=== PATIENT | female | born 1990 | race Two or more races ===

== ENCOUNTER 2023-09-12 12:33 | Outpatient (CLI) | payer OTHER ==
--- NOTE | 2023-09-12 17:46 | Ultrasound Report ---
PROCEDURE: OB First Trimester w/TV INDICATIONS: POSITIVE TEST OUTSIDE/PRIOR DATING DATA: Last menstrual period (LMP): 07/13/2023. LMP-based estimated date of delivery (CALEB): 04/18/2024. TECHNIQUE: Real-time scanning was performed of the fetus and maternal pelvic organs, with image documentation. Endovaginal scanning was also performed to better visualize the fetus and maternal ovaries. COMPARISON: 08/10/2023. FINDINGS: No intrauterine gestational sac identified. No evidence to suggest decidual reaction of th e endometrium. Incidental nabothian cysts identified near the cervix. Embryo: Not visualized Heart rate: No cardiac activity detected. Maternal organs: There is a prominent cyst with fine internal debris noted in the right ovary measuri ng 4.1 x 3.9 x 5.3 cm. Right ovary measures approximately 5.7 x 4.7 x 3.5 cm. Right ovarian volume me asures 48.9 mL. No suspicious ovarian/adnexal masses. The left ovary/adnexa was not well visualized. No pathologic pelvic free fluid. IMPRESSION: No sonographic evidence for intrauterine gestational sac or intrauterine gestation. The left ovary/ad nexa was not well visualized. Right ovary demonstrates presence of a 5.3 cm cyst. No pathologic pelvi c free fluid. In the setting of a positive test, findings may represent an early normal int rauterine gestation with ectopic not excluded. A missed spontaneous may also have a similar appearance. Recommend updated quantitative beta hCG to correlate with previous evaluation m bhavya on 08/17/2023. Additionally, short interval follow-up ultrasound recommended to document expected progression of as clinically warranted. Reviewed by: Flavio Meyers MD on 09/12/2023 5:44 PM PST Approved by: Flavio Meyers MD on 09/12/2023 5:44 PM PST Station ID: [id number]
== END 2023-09-12 12:34 | disposition home or self-care (01) ==
LOC: MERGE 12:33 → DI 12:33
PROVIDERS: ATTEND Nurse Practitioner
DX: Z32.01 Encounter for pregnancy test, result positive (principal); O34.80 Maternal care for other abnormalities of pelvic organs, unspecified trimester; N83.201 Unspecified ovarian cyst, right side; Z3A.00 Weeks of gestation of pregnancy not specified

== ENCOUNTER 2023-09-15 11:03 | Outpatient (CLI) | payer OTHER ==
[2023-09-15 11:37] LABS: BASOPHILS % (AUTO) 0.2 %; EOSINOPHILS % (AUTO) 0.4 %; HCT - HEMATOCRIT 35.5 % (37.0-47.0); HGB - HEMOGLOBIN 11.7 g/dL (12.0-16.0); LYMPHOCYTES # (AUTO) 2.2 10^3/uL (1.5-3.5); LYMPHOCYTES % (AUTO) 24.8 %; MEAN CORPUSCULAR HEMOGLOBIN 28.2 pg (27.0-31.0); MEAN CORPUSCULAR VOLUME 85.5 fL (81.0-99.0); MEAN PLATELET VOLUME 9.1 fL (7.9-10.8); MONOCYTES # (AUTO) 0.6 10^3/uL (0.0-1.0); MONOCYTES % (AUTO) 6.9 %; NEUTROPHILS # (AUTO) 6.1 10^3/uL (1.5-6.6); NEUTROPHILS % (AUTO) 67.4 %; PLT - PLATELET COUNT 302 10^3/uL (130-450); RED BLOOD COUNT 4.15 10^6/uL (4.20-5.40)
[2023-09-16 05:12] LABS: HBsAG SCREEN Negative (Negative); HCV AB Non Reactive (Non Reactive); HIV SCREEN 4TH GENERATION Non Reactive (Non Reactive)
[2023-09-16 09:09] LABS: VARICELLA-ZOSTER AB IGG 1533 index (Immune >165)
== END 2023-09-15 11:04 | disposition home or self-care (01) ==
LOC: MERGE 11:03 → LAB 11:03
PROVIDERS: ATTEND Obstetrics & Gynecology
DX: O28.3 Abnormal ultrasonic finding on antenatal screening of mother (principal); Z36.89 Encounter for other specified antenatal screening
CPT/HCPCS: 36415; 84702; 85025; 86592; 86762; 86787; 86803; 86850; 86900; 86901; 87340; 87389

== ENCOUNTER 2023-09-15 14:42 | Outpatient (CLI) | payer OTHER ==
--- NOTE | 2023-09-15 16:32 | Ultrasound Report ---
PROCEDURE: OB First Trimester w/TV INDICATIONS: ABNORMAL ULTRASOUND Beta hCG 133,061. OUTSIDE/PRIOR DATING DATA: Last menstrual period (LMP): 07/13/2023. LMP-based estimated date of delivery (CALEB): 04/18/2024. First dating scan (date and location): 08/11/2023. TECHNIQUE: Real-time scanning was performed of the fetus and maternal pelvic organs, with image documentation. Endovaginal scanning was also performed to better visualize the fetus and maternal ovaries. COMPARISON: OB ultrasound 09/12/2023, 08/11/2023. FINDINGS: No intrauterine gestational sac. Endometrium measures 2.3 cm transabdominally. Endometrium measures 2.9 cm transvaginally. No hyperemia appreciated. No significant cystic change. A few small nabothian cysts. Cervix is closed. Right ovary measures 6.6 x 5.3 x 4.3 cm. Blood flow is present. -Right ovary large cyst measuring 5.3 x 4.2 x 3.8 cm, (previously 5.3 x 4.1 x 3.9 cm; and more remote ly 5.4 x 5 x 3.7 cm). Internal echoes are less conspicuous. No internal vascularity. -Right ovarian hypoechoic nodule measuring 2.3 x 2 x 2 cm. Blood flow is present. -Right ovarian hypoechoic nodule measuring 1.5 x 1.3 x 1 cm. Blood flow is present. Left ovary measures 2.8 x 1.7 x 1.5 cm. Blood flow is present. No significant left ovarian cyst. IMPRESSION: 1. of uncertain location. No intrauterine gestational sac. No obvious ectopic . 2. Similar endometrial thickening measuring 2.9 cm transvaginally. 3. Large right ovarian cyst with debris measuring 5.3 cm is similar. 4. Small right ovarian hypoechoic nodules x2. Uncertain clinical significance. Exam findings were discussed with Dr. Spear. Markedly elevated beta hCG. Molar is difficult to exclude. Consider further evaluation with pelvic MRI. Reviewed by: Charlie Rausch MD on 09/15/2023 4:31 PM PST Approved by: Charlie Rausch MD on 09/15/2023 4:31 PM PST Station ID: [id number]
== END 2023-09-15 14:43 | disposition home or self-care (01) ==
LOC: MERGE 14:42 → DI 14:42
PROVIDERS: ATTEND Nurse Practitioner
DX: O36.80X0 Pregnancy with inconclusive fetal viability, not applicable or unspecified (principal); O99.891 Other specified diseases and conditions complicating pregnancy; R93.89 Abnormal findings on diagnostic imaging of other specified body structures; O34.81 Maternal care for other abnormalities of pelvic organs, first trimester; N83.201 Unspecified ovarian cyst, right side; Z3A.09 9 weeks gestation of pregnancy; Z36.89 Encounter for other specified antenatal screening
CPT/HCPCS: 36415; 84702; 85025; 86592; 86762; 86787; 86803; 86850; 86900; 86901; 87340; 87389

== ENCOUNTER 2023-09-16 13:04 | Day surgery (SDC) | payer OTHER ==
[2023-09-16] MEDS ORDERED: fentaNYL 100 MCG/2 ML VIAL IVP ONE (13:05)
[2023-09-16] MEDS ORDERED: LIDOCAINE-MPF 2% 5 ML VIAL TD ONE (13:05)
[2023-09-16] MEDS ORDERED: ACETAMINOPHEN 325 MG TABLET PO ONE ×2 (13:05→13:52)
[2023-09-16] MEDS ORDERED: ONDANSETRON 4 MG/2 ML VIAL IVP ONE (13:05)
[2023-09-16] MEDS ORDERED: MIDAZOLAM 2 MG/2 ML VIAL IVP ONE (13:05)
[2023-09-16] MEDS ORDERED: DEXAMETHASONE 4 MG/ML VIAL IVP ONE (13:05)
[2023-09-16] MEDS ORDERED: PROPOFOL 200 MG/20 ML VIAL IVP ONE ×4 (13:05→15:38)
[2023-09-16] MEDS ORDERED: KETOROLAC 30 MG/ML VIAL IVP ONE (13:05)
[2023-09-16] MEDS ORDERED: LACTATED RINGERS 1,000 ML IV ONE ×2 (13:38→15:00)
[2023-09-16 13:44] VITALS: BP 122/71; O2SAT 100
[2023-09-16] MEDS ORDERED: LIDOCAINE-PF 2% 10 ML AMP SUBQ ONE (13:51)
[2023-09-16] MEDS ORDERED: ceFAZolin 2 GM VIAL ONE (13:52)
[2023-09-16] MEDS ORDERED: METRONIDAZOLE ONE (13:52)
--- NOTE | 2023-09-16 13:59 | ANESTHESIA ---
Pre-Anesthesia VS, & Labs Height: 5 ft 3 in Weight (kg): 77.5 kg Body Mass Index: 30.2 BMI Classification: Obese - NPO >8 hours - Is Patient ?: Yes (molar) - Lab Results Lab results reviewed: Yes - Diagnosis molar (Waqas Vargas) - Procedure hysteroscopy, D&C (Waqas Vargas) Vital Signs: Temp Pulse Resp BP Pulse Ox O2 Flow Rate 36.2 C L 95 19 122/71 100 09/16/23 13:30 09/16/23 13:30 09/16/23 13:30 09/16/23 13:30 09/16/23 13:30 Home Medications and Allergies Home Medications: Ambulatory Orders No Known Home Medications 09/16/23 No Known Home Medications 09/16/23 Allergies/Adverse Reactions: Allergies Allergy/AdvReac Type Severity Reaction Status Date / Time No Known Drug Allergies Allergy Verified 09/16/23 13:38 Anes History & Medical History - Anesthetic History Anesthesia Complications: reports: No previous complications Family history of Anesthesia Complications: Denies Family history of Malignant Hyperthermia: Denies - Medical History Cardiovascular: reports: None Pulmonary: reports: None Urinary: reports: None Neuro: reports: None Endocrine/Autoimmune: reports: None Blood Disorders: reports: None Psychosocial: reports: No issues indicated History of Cancer?: No - Surgical History Gynecologic: reports: section Exam General: Alert, Oriented x3, Cooperative Dental: WNL Mouth Openin Fingerbreadth Neck Mobility: Normal Mallampati classification: III Thyromental Distance: 4-6 cm Respiratory: Lungs clear, Normal breath sounds, No respiratory distress Cardiovascular: Regular rate Neurological: Normal speech Mental/Cognitive Status: Alert/Oriented X3, Normal for patient Cognitive Status: Within normal limits Plan Anesthesia Type: General Consent for Procedure(s) Verified and Reviewed: Yes Code Status: Attempt Resuscitation ASA classification: 2-Mild systemic disease Is this case an emergency?: No
[2023-09-16] MEDS ORDERED: fentaNYL 100 MCG/2 ML VIAL ONE (15:03)
[2023-09-16] MEDS ORDERED: MIDAZOLAM 2 MG/2 ML VIAL ONE (15:03)
[2023-09-16] MEDS ORDERED: ONDANSETRON 4 MG/2 ML VIAL ONE (15:26)
[2023-09-16] MEDS ORDERED: DEXAMETHASONE 4 MG/ML VIAL ONE (15:26)
[2023-09-16] MEDS ORDERED: KETOROLAC 30 MG/ML VIAL ONE (15:48)
--- NOTE | 2023-09-16 16:25 | ANESTHESIA POST OP EVALUATION ---
Anesthesia Post Eval - Post Anesthesia Eval Vitals: Last Vital Signs Temp 36.2 C L 09/16/23 13:30 Pulse 95 09/16/23 13:30 Resp 19 09/16/23 13:30 BP 122/71 09/16/23 13:30 Pulse Ox 100 09/16/23 13:30 O2 Flow Rate CV Function Including HR & BP: Stable Pain Control: Satisfactory Nausea & Vomiting: Negative Mental Status: Baseline Respiratory Status: Airway Patent Hydration Status: Satisfactory Anesthesia Complications: None
== END 2023-09-16 13:05 | disposition home or self-care (01) ==
LOC: SDS 13:04
PROVIDERS: ATTEND Obstetrics & Gynecology
DX: O02.0 Blighted ovum and nonhydatidiform mole (principal); Z53.9 Procedure and treatment not carried out, unspecified reason
CPT/HCPCS: 84702; 85025; 86850; 86900; 86901

== ENCOUNTER 2023-09-16 14:41 | Day surgery (SDC) | payer OTHER ==
[2023-09-16] MEDS ORDERED: metroNIDAZOLE 500 MG/100 ML 500 MG/100 ML BAG IV ONE (14:42)
[2023-09-16 14:56] LABS: BASOPHILS % (AUTO) 0.2 %; EOSINOPHILS % (AUTO) 0.4 %; HGB - HEMOGLOBIN 11.5 g/dL (12.0-16.0); LYMPHOCYTES # (AUTO) 2.9 10^3/uL (1.5-3.5); LYMPHOCYTES % (AUTO) 26.7 %; MEAN CORPUSCULAR HGB CONC 32.9 g/dL (32.0-36.0); MEAN CORPUSCULAR VOLUME 85.4 fL (81.0-99.0); MEAN PLATELET VOLUME 8.9 fL (7.9-10.8); MONOCYTES # (AUTO) 0.8 10^3/uL (0.0-1.0); MONOCYTES % (AUTO) 7.5 %; NEUTROPHILS % (AUTO) 64.9 %; PLT - PLATELET COUNT 301 10^3/uL (130-450); RED CELL DISTRIBUTION WIDTH 12.9 % (12.0-15.0); WHITE BLOOD COUNT 10.8 x10^3/uL (4.8-10.8)
--- NOTE | 2023-09-16 14:56 | ED Physician Documentation ---
History of Present Illness - Stated complaint Stated Complaint: ABD PX/ - Additonal information Additional information: 32-year-old female checked into the emergency department for concerns of a probable molar . I was asked to see this patient by Dr. Spear the OB on-call today. The patient has had serum quant hCG of more than 130,000. Ultrasound imaging has showed a stable 5 cm adnexal cyst since july her endometrium appears irregular. Given that the cyst was present at the time of initial and it has not changed in size Dr. Spear is concerned for a probable molar . Patient had initially presented to short stay surgery for her planned D&C today but they were unable to obtain prior authorization through [facility], thus she was brought into the emergency department in order to facilitate this necessary timely intervention for what is thought to be a probable molar . Dr. Spear has requested that I order a type and cross, CBC, electrolytes as well as a repeat serum quant hCG I am presented by patient who is alert well-appearing though tearful. Her vital signs were without acute worrisome abnormality. Dr. Spear is at the bedside. 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 - Present Medications Home Medications: Ambulatory Orders Medication Instructions Recorded Confirmed No Known Home Medications 09/16/23 09/16/23 - Allergies Allergies/Adverse Reactions: Allergies Allergy/AdvReac Type Severity Reaction Status Date / Time No Known Drug Allergies Allergy Verified 09/16/23 13:38 - Social History Does the pt smoke?: No Smoking Status: Never smoker PD ED PE NORMAL - General General: Alert and oriented X 3, No acute distress, Other (tearful, crying regarding failed ) - HEENT HEENT: Atraumatic - Cardiac Cardiac: RRR, No murmur - Respiratory Respiratory: No respiratory distress - Abdomen Abdomen: Normal bowel sounds, Soft, Non tender - Back Back: No CVA TTP - Derm Derm: Normal color - Neuro Neuro: Alert and oriented X 3 Eye Opening: Spontaneous Motor: Obeys Commands Verbal: Oriented GCS Score: 15 Results - Vitals Vitals: Vital Signs - 24 hr 09/16/23 14:46 Temperature 36.4 C L Heart Rate 86 Respiratory 18 Rate Blood Pressure 136/82 H O2 Saturation 100 Oxygen O2 Source Room air - Labs Labs: Laboratory Tests 09/16/23 09/16/23 09/16/23 14:48 14:48 14:48 WBC 10.8 RBC 4.10 L Hgb 11.5 L Hct 35.0 L MCV 85.4 MCH 28.0 MCHC 32.9 RDW 12.9 Plt Count 301 MPV 8.9 Neut # (Auto) 7.0 H Lymph # (Auto) 2.9 [place] # (Auto) 0.8 Eos # (Auto) 0.0 Baso # (Auto) 0.0 Absolute Nucleated RBC 0.00 Nucleated RBC % 0.0 Sodium 135 Potassium 3.4 L Chloride 104 Carbon Dioxide 24 Anion Gap 7.0 BUN 7 Creatinine 0.6 Estimated GFR (MDRD) 116 Glucose 96 Calcium 9.4 Total Bilirubin 0.4 AST 14 ALT 12 Alkaline Phosphatase 94 Total Protein 7.5 Albumin 4.5 Globulin 3.0 Albumin/Globulin Ratio 1.5 Lipase 22 Beta HCG, Quant 107449.5 Blood Type A POSITIVE Blood Type Recheck Antibody Screen NEGATIVE Crossmatch IS Only See Detail 09/16/23 15:00 WBC RBC Hgb Hct MCV MCH MCHC RDW Plt Count MPV Neut # (Auto) Lymph # (Auto) [place] # (Auto) Eos # (Auto) Baso # (Auto) Absolute Nucleated RBC Nucleated RBC % Sodium Potassium Chloride Carbon Dioxide Anion Gap BUN Creatinine Estimated GFR (MDRD) Glucose Calcium Total Bilirubin AST ALT Alkaline Phosphatase Total Protein Albumin Globulin Albumin/Globulin Ratio Lipase Beta HCG, Quant Blood Type Blood Type Recheck A POSITIVE Antibody Screen Crossmatch IS Only PD Medical Decision Making - ED course Complexity details: reviewed results, re-evaluated patient, d/w patient, d/w applications development consultant (Rainer) ED course: 32-year-old female presents emergency department at the advice of gynecology for evaluation of suspected probable molar . G5, . Ultrasound has failed to reveal an IUP but she has rising quant's. Per gynecology recent ultrasounds have suggested some endometrial abnormality and her concern is that there could be a molar . Patient is noted to have on previous imaging a 5 cm adnexal cyst however this was present before at the time that she became so there is less suspicion for ectopic. Here in the emergency department she is alert well-appearing. Vital signs without worrisome abnormalities. CBC and electrolytes were essentially unremarkable. She was typed and crossed for 2 units of blood. Her quant today is just over 150,000 and was recently 131,000. I discussed this case with Dr. Camacho and she is taking the patient to same-day surgery for evaluation of what she had previously believed to be a probable molar . Further care to be dictated by the gynecology team Departure - Departure Disposition: ED Transfer to [facility] Clinical Impression: Molar Forms: PCP List Discharge Date/Time: 09/16/23 15:17
--- NOTE | 2023-09-16 15:05 | HISTORY & PHYSICAL EXAMINATION ---
HPI - Admitted From Admitted from: ED - History Obtained From History obtained from: Patient Exam limitations: No limitations - History of Present Illness Pain/Problem Location Description: new onset uterine cramping. no bleeding Severity at the worst: reports: Moderate Pain Quality: reports: Cramping Worsened by: reports: Exertion HPI Comment/Other: patient with known abnormal . now with increased cramping that brought her to the ER. no bleeding. Quant beta 09/12 133,000. Ultrasound Friday and yesterday with no visible IUP. endometrial stripe is thick at 3 cm. 5 cm left adnexal mass there since July with little change. given this presumptive diagnosis of molar requiring evacuation of uterus urgently. PMH/PSH - Past Medical History Cardiovascular: positive: None Respiratory: positive: None Neuro: positive: None Endocrine/Autoimmune: positive: None GI: positive: None RN PLASTICS: positive: Other (3 vaginal deliveries in [facility]) : positive: None HEENT: positive: None Psych: positive: None Musculoskeletal: positive: None Derm: positive: None MRSA Hx?: No - Past Surgical History /RN PLASTICS: positive: section Social & Family Hx - Living Situation Living Arrangement: At home Living Situation: With spouse/s.o., With family - Social History Does the pt smoke?: No Smoking Status: Never smoker Does the pt drink ETOH?: No Does the pt have substance abuse?: No Meds/Allgy - Home Medications Home Medications: Ambulatory Orders Medication Instructions Recorded Confirmed No Known Home Medications 09/16/23 09/16/23 - Allergies Allergies/Adverse Reactions: Allergies Allergy/AdvReac Type Severity Reaction Status Date / Time No Known Drug Allergies Allergy Verified 09/16/23 13:38 Review of Systems - Constitutional Constitutional: reports: Fatigue (no vaginal bleeding) - Cardiovascular Cariovascular: denies: Irregular heart rate - Respiratory Respiratory: denies: Cough - Genitourinary Genitourinary: denies: Dysuria - Musculoskeletal Musculoskeletal: reports: Back pain (some on low left) - Integumentary Integumentary: denies: Rash - Psychiatric Psychiatric: reports: Other (very sad about loss.) - Hematologic/Lymphatic Hematologic/Lymphatic: denies: Anemia Exam - Vital Signs Vital Signs: Vital Signs x48h Temp Pulse Resp BP Pulse Ox 09/16/23 14:46 97.5 F L 86 18 136/82 H 100 - Physical Exam General Appearance: positive: Other (tearful about loss and discomfort.) Cardiovascular: positive: Regular rate & rhythm Abdomen: positive: Non-tender Skin: positive: Color nml, No rash Extremities: positive: Non-tender, Full ROM, Nml appearance Results - Lab Results Fish Bones: 09/16/23 14:48 Other Lab Results: Lab Results x24hrs 09/16/23 09/16/23 Range/Units 14:48 14:48 WBC 10.8 (4.8-10.8) x10^3/uL RBC 4.10 L (4.20-5.40) 10^6/uL Hgb 11.5 L (12.0-16.0) g/dL Hct 35.0 L (37.0-47.0) % MCV 85.4 (81.0-99.0) fL MCH 28.0 (27.0-31.0) pg MCHC 32.9 (32.0-36.0) g/dL RDW 12.9 (12.0-15.0) % Plt Count 301 (130-450) 10^3/uL MPV 8.9 (7.9-10.8) fL Neut # (Auto) 7.0 H (1.5-6.6) 10^3/uL Lymph # (Auto) 2.9 (1.5-3.5) 10^3/uL [place] # (Auto) 0.8 (0.0-1.0) 10^3/uL Eos # (Auto) 0.0 (0.0-0.7) 10^3/uL Baso # (Auto) 0.0 (0.0-0.1) 10^3/uL Absolute Nucleated RBC 0.00 x10^3/uL Nucleated RBC % 0.0 /100WBC Crossmatch IS Only See Detail - Diagnostic Imaging Results Diagnostic Imaging Results: positive: Final report reviewed (from yesterday. described in HPI) Impression/Plan - Problem List Problem List: Probable molar with new onset cramping. will go to OR tonight to evacuate. if she starts bleeding, could bleed very heavily if this is in fact molar . Need to empty her uterus before she bleeds and to confirm diagnosis. Once diagnosis is confirmed will need to follow quant betas to zero. I explained this to patient her . Risks and issues with surgery discussed. Very much wants to get again as soon as she can. Will accept blood if necessary.
[2023-09-16] MEDS ORDERED: LIDOCAINE 1%-EPI 1:100000 20 ML MDV ONE (15:08)
[2023-09-16] MEDS ORDERED: LIDOCAINE 1%-EPI 1:100000 30 ML MDV SUBQ ONE (15:24)
[2023-09-16 15:47] LABS: ALBUMIN 4.5 g/dL (3.2-5.5); ALBUMIN/GLOBULIN RATIO 1.5 (1.0-2.2); BILIRUBIN,TOTAL 0.4 mg/dL (0.2-1.0); CALCIUM 9.4 mg/dL (8.5-10.3); CREATININE 0.6 mg/dL (0.6-1.3); POTASSIUM 3.4 mmol/L (3.5-4.5); TOTAL PROTEIN 7.5 g/dL (6.4-8.9)
[2023-09-16] MEDS ORDERED: LACTATED RINGERS 1,000 ML IV ONE (15:55)
[2023-09-16] MEDS ORDERED: MORPHINE 2 MG/ML CARPUJECT IVP PRN (16:08)
[2023-09-16] MEDS ORDERED: METOCLOPRAMIDE 10 MG/2 ML VIAL IVP PRN (16:08)
[2023-09-16] MEDS ORDERED: HYDROmorphone 0.5 MG/0.5 ML SYRINGE IVP PRN (16:08)
[2023-09-16] MEDS ORDERED: ePHEDrine 50 MG/ML VIAL IVP PRN (16:08)
[2023-09-16] MEDS ORDERED: ATROPINE ABBOJECT 1 MG/10 ML SYRINGE IVP PRN (16:08)
[2023-09-16] MEDS ORDERED: NALOXONE 0.4 MG/ML VIAL IVP PRN (16:08)
[2023-09-16] MEDS ORDERED: ONDANSETRON 4 MG/2 ML VIAL IVP PRN (16:08)
[2023-09-16] MEDS ORDERED: fentaNYL 100 MCG/2 ML VIAL IVP PRN (16:08)
--- NOTE | 2023-09-16 16:24 | ANESTHESIA POST OP EVALUATION ---
Anesthesia Post Eval - Post Anesthesia Eval Vitals: Last Vital Signs Temp 36.3 C L 09/16/23 16:10 Pulse 85 09/16/23 16:20 Resp 16 09/16/23 16:20 BP 103/65 09/16/23 16:20 Pulse Ox 98 09/16/23 16:20 O2 Flow Rate CV Function Including HR & BP: Stable Pain Control: Satisfactory Nausea & Vomiting: Negative Mental Status: Baseline Respiratory Status: Airway Patent Hydration Status: Satisfactory Anesthesia Complications: None
[2023-09-16 16:52] VITALS: BP 105/60; O2SAT 100
[2023-09-16] MEDS ORDERED: LACTATED RINGERS 1,000 ML IV SCH (17:00)
== END 2023-09-16 23:59 | disposition home or self-care (01) ==
LOC: SDS 14:41
PROVIDERS: ATTEND Obstetrics & Gynecology
PROC: 10D07Z8 Extraction of Products of Conception, Other, Via Natural or Artificial Opening (ICD-10-PCS; principal; 2023-09-16 15:30)
DX: O01.0 Classical hydatidiform mole (principal); E66.9 Obesity, unspecified; Z68.30 Body mass index [BMI] 30.0-30.9, adult
CPT/HCPCS: 36415; 80053; 83690; 84702; 85025; 86850; 86900; 86901; 86920; 99285

== ENCOUNTER 2023-09-16 15:04 | Day surgery (SDC) | payer OTHER ==
[2023-09-16] MEDS ORDERED: metroNIDAZOLE 500 MG/100 ML 500 MG/100 ML BAG ONE (15:32)
--- NOTE | 2023-09-16 19:30 | OPERATIVE REPORT ---
Operative Report - General Procedure Date: 09/16/23 Planned Procedure: suction D&C to evaluate ? Molar . Pre-Op Diagnosis: molar Procedure Performed: suction D&C Post Op Diagnosis: same - Procedure Note Primary Surgeon: Yenny Spear MD Anesthesia Provider: Waqas Vargas Anesthesia Technique: General LMA Pathology: POC to lab. I called lab to process specimen quickly as we are still not sure what is going on with this lady. IV Fluids (mL): 600 Estimated Blood Loss (mL): 200 Urine Output (mL): 0 Indications: abnormal with rising beta hcg now 157,000 and new uterine cramping that brought her to ER. no intrauterine noted on ultrasound but no signs of a in the adnexa either. 5 cm left ovarian cyst there since July, early , and not growing in that time so I don't think that is the growing. here for uterine evacuation, first steps in diagnosis of what is going on. Findings: about 50 cc of tissue in uterus. uterus sounded 10 cm. Complications: none - Other Other Information/Narrative: Patient was evaluated in ER and then brought to OR for procedure. unclear where this tissue is growing but mostly likely a molar given high beta and no IUP seen. no ectopic seen either. will do D&C to get pathology on this tissue and then go from there with further evaluation. she has signed consents. agrees to transfusion if needed. T&C for 2 units. in OR put to sleep with general anesthesia. legs in candy cane stirrups. prep done. time out done. SCDs on and working. Ancef and flaygl given. bimanual exam done. Uterus about 10 cm, mid. speculum placed and cervix grasped with tenaculum. dilated to allow 8 mm flexible curette. placed and suction turned on. uterus emptied. one pass wiht sharp curette and I did not feel like I was getting any tissue. suction curette replaced. Uterus felt empty. no bleeding. insturments removed. patient repositioned, awakened and brought to PACU. NO complications.
== END 2023-09-16 15:05 | disposition home or self-care (01) ==
LOC: SDS 15:04
PROVIDERS: ATTEND Registered Nurse
DX: Z53.9 Procedure and treatment not carried out, unspecified reason (principal)

== ENCOUNTER 2023-10-01 15:09 | Outpatient (CLI) | payer OTHER | END 2023-10-01 15:10 | disposition home or self-care (01) | LOC: LAB.N 15:09 | PROVIDERS: ATTEND Obstetrics & Gynecology | DX: O02.0 Blighted ovum and nonhydatidiform mole (principal) | CPT/HCPCS: 36415; 84702 ==

== ENCOUNTER 2023-10-08 15:01 | Outpatient (CLI) | payer OTHER | END 2023-10-08 15:02 | disposition home or self-care (01) | LOC: LAB 15:01 | PROVIDERS: ATTEND Obstetrics & Gynecology | DX: O02.0 Blighted ovum and nonhydatidiform mole (principal) | CPT/HCPCS: 36415; 84702 ==

== ENCOUNTER 2023-10-14 04:20 | Day surgery (SDC) | payer OTHER ==
[2023-10-14] MEDS ORDERED: KETOROLAC 30 MG/ML VIAL IVP STA (04:49)
[2023-10-14] MEDS ORDERED: SODIUM CHLORIDE 0.9% 1,000 ML IV STA (04:49)
[2023-10-14] MEDS ORDERED: HYDROmorphone 1 MG/ML CARPUJECT IVP STA ×2 (04:49→11:03)
[2023-10-14 05:09] LABS: BASOPHILS % (AUTO) 0.2 %; EOSINOPHILS # (AUTO) 0.1 10^3/uL (0.0-0.7); HCT - HEMATOCRIT 36.3 % (37.0-47.0); HGB - HEMOGLOBIN 11.9 g/dL (12.0-16.0); LYMPHOCYTES # (AUTO) 2.9 10^3/uL (1.5-3.5); LYMPHOCYTES % (AUTO) 34.1 %; MEAN CORPUSCULAR HEMOGLOBIN 27.9 pg (27.0-31.0); MEAN CORPUSCULAR HGB CONC 32.8 g/dL (32.0-36.0); MEAN CORPUSCULAR VOLUME 85.2 fL (81.0-99.0); MEAN PLATELET VOLUME 8.5 fL (7.9-10.8); MONOCYTES # (AUTO) 0.6 10^3/uL (0.0-1.0); MONOCYTES % (AUTO) 7.3 %; NEUTROPHILS # (AUTO) 4.9 10^3/uL (1.5-6.6); NEUTROPHILS % (AUTO) 57.1 %; PLT - PLATELET COUNT 315 10^3/uL (130-450); RED BLOOD COUNT 4.26 10^6/uL (4.20-5.40); RED CELL DISTRIBUTION WIDTH 13.4 % (12.0-15.0); WHITE BLOOD COUNT 8.6 x10^3/uL (4.8-10.8)
[2023-10-14 05:12] LABS: BILIRUBIN,URINE NEGATIVE (NEGATIVE); GLUCOSE, URINE (UA) NEGATIVE (NEGATIVE); KETONES,URINE (UA) NEGATIVE (NEGATIVE); LEUKOCYTE ESTERASE, URINE NEGATIVE (NEGATIVE); NITRITE,URINE NEGATIVE (NEGATIVE); OCCULT BLOOD,URINE NEGATIVE (NEGATIVE); PROTEIN,URINE TRACE mg/dL (NEGATIVE); UROBILINOGEN,URINE 0.2 (NORMAL) E.U./dL (NORMAL)
[2023-10-14 05:15] LABS: CLARITY,URINE CLEAR (CLEAR); HCG UR QUAL POSITIVE
[2023-10-14 05:38] LABS: ALBUMIN 4.4 g/dL (3.2-5.5); ALBUMIN/GLOBULIN RATIO 1.3 (1.0-2.2); BILIRUBIN,TOTAL 0.5 mg/dL (0.2-1.0); CALCIUM 8.7 mg/dL (8.5-10.3); CREATININE 0.8 mg/dL (0.6-1.3); POTASSIUM 3.4 mmol/L (3.5-4.5); TOTAL PROTEIN 7.9 g/dL (6.4-8.9)
--- NOTE | 2023-10-14 06:36 | ED Physician Documentation ---
History of Present Illness - Stated complaint Stated Complaint: /LBP - Chief complaint Chief Complaint: Abd Pain - History obtained from History obtained from: Patient, Family - Additonal information Additional information: Patient comes to the emergency department chief complaint of recurrence of left lower quadrant abdominal pain. She states that its come up over the last approximately 3 days but it got especially bad overnight. She denies nausea or vomiting. No change in her bowel movements. No dysuria. No fevers or chills. The patient had a diagnosis of molar in early September and was taken to the OR for D&C for this. At that time, her quantitative hCG went from the mid 100,000s to 400. However, over later September, her quants have started to rise again. The states that Dr. Spear, the patient's OB specialist, had asked them to get another level drawn tomorrow and that if it was continuing to rise, she would consider taking the patient for another D&C. No other complaints at this time. 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 - Present Medications Home Medications: Ambulatory Orders Medication Instructions Recorded Confirmed No Known Home Medications 09/16/23 09/16/23 - Allergies Allergies/Adverse Reactions: Allergies Allergy/AdvReac Type Severity Reaction Status Date / Time No Known Drug Allergies Allergy Verified 09/17/23 11:12 - Social History Does the pt smoke?: No Smoking Status: Never smoker Does the pt drink ETOH?: No Does the pt have substance abuse?: No - Immunizations Immunizations are current?: Yes - POLST Patient has POLST: No PD ED PE NORMAL - Vitals Vital signs reviewed: Yes - General General: Alert and oriented X 3, No acute distress, Well developed/nourished, Other (The patient appears mildly uncomfortable but otherwise in no apparent d istress.) - HEENT HEENT: Atraumatic, PERRL, EOMI, Moist mucous membranes - Neck Neck: Supple, no meningeal sign - Cardiac Cardiac: RRR, No murmur, Strong equal pulses - Respiratory Respiratory: No respiratory distress, Clear bilaterally - Abdomen Abdomen: Soft, Non distended, Other (Moderate tenderness left lower quadrant, no rebound or guarding.) - Derm Derm: Normal color, Warm and dry, No rash - Extremities Extremities: No deformity, No edema - Neuro Neuro: Alert and oriented X 3, Other (Grossly intact) - Psych Psych: Normal mood, Normal affect Results - Vitals Vitals: Vital Signs - 24 hr 10/14/23 10/14/23 04:34 06:52 Temperature 36.2 C L Heart Rate 79 94 Respiratory 16 16 Rate Blood Pressure 122/69 116/100 H O2 Saturation 100 96 Oxygen O2 Source Room air - Labs Labs: Laboratory Tests 10/14/23 10/14/23 10/14/23 04:50 05:03 05:03 WBC 8.6 RBC 4.26 Hgb 11.9 L Hct 36.3 L MCV 85.2 MCH 27.9 MCHC 32.8 RDW 13.4 Plt Count 315 MPV 8.5 Neut # (Auto) 4.9 Lymph # (Auto) 2.9 [place] # (Auto) 0.6 Eos # (Auto) 0.1 Baso # (Auto) 0.0 Absolute Nucleated RBC 0.00 Nucleated RBC % 0.0 Sodium 135 Potassium 3.4 L Chloride 104 Carbon Dioxide 23 Anion Gap 8.0 BUN 11 Creatinine 0.8 Estimated GFR (MDRD) 83 L Glucose 111 H Calcium 8.7 Total Bilirubin 0.5 AST 14 ALT 10 Alkaline Phosphatase 96 Total Protein 7.9 Albumin 4.4 Globulin 3.5 Albumin/Globulin Ratio 1.3 Lipase 26 Beta HCG, Quant 2146.3 Urine Color Urine Clarity Urine pH Ur Specific [place] Urine Protein Urine Glucose (UA) Urine Ketones Urine Occult Blood Urine Nitrite Urine Bilirubin Urine Urobilinogen Ur Leukocyte Esterase Ur Microscopic Review Urine Culture Comments Urine HCG, Qual 10/14/23 05:03 WBC RBC Hgb Hct MCV MCH MCHC RDW Plt Count MPV Neut # (Auto) Lymph # (Auto) [place] # (Auto) Eos # (Auto) Baso # (Auto) Absolute Nucleated RBC Nucleated RBC % Sodium Potassium Chloride Carbon Dioxide Anion Gap BUN Creatinine Estimated GFR (MDRD) Glucose Calcium Total Bilirubin AST ALT Alkaline Phosphatase Total Protein Albumin Globulin Albumin/Globulin Ratio Lipase Beta HCG, Quant Urine Color YELLOW Urine Clarity CLEAR Urine pH 6.0 Ur Specific [place] 1.025 Urine Protein TRACE Urine Glucose (UA) NEGATIVE Urine Ketones NEGATIVE Urine Occult Blood NEGATIVE Urine Nitrite NEGATIVE Urine Bilirubin NEGATIVE Urine Urobilinogen 0.2 (NORMAL) Ur Leukocyte Esterase NEGATIVE Ur Microscopic Review NOT INDICATED Urine Culture Comments NOT INDICATED Urine HCG, Qual POSITIVE PD Medical Decision Making - ED course Complexity details: reviewed old records, reviewed results, re-evaluated patient, considered differential, d/w patient ED course: The patient was worked up in the emergency department for laboratory studies which were largely unremarkable except for a quantitative hCG which was over 2100. This was significantly elevated from the patient's last quant on October 08, which was in the 700s. I discussed the case with Dr. Spear, who stated she would like to go ahead and have the patient get an ultrasound, but that she would come in and see the patient this morning and plan to take her to the operating room later in the morning. I discussed the plan with the patient and her , who are agreeable. The patient was treated with serial doses of Dilaudid and IV fluids. She has been advised not to eat or drink anything in the emergency department. The patient this time is awaiting evaluation by Dr. Spear in the emergency department. If the patient needs any further intervention in the ED, this will be signed out to my oncoming colleague at change of shift at 0700. Departure - Departure Disposition: ED Transfer to [facility] Clinical Impression: Molar , Abdominal pain affecting Condition: Serious Forms: PCP List
[2023-10-14] MEDS ORDERED: HYDROmorphone 0.5 MG/0.5 ML SYRINGE IVP STA (06:39)
--- NOTE | 2023-10-14 09:12 | XRAY Report ---
PROCEDURE: Chest 1V INDICATIONS: chest pain TECHNIQUE: One view of the chest was acquired. COMPARISON: None. FINDINGS: Surgical changes and devices: None. Lungs and pleura: No pleural effusions or pneumothorax. Lungs are clear. Mediastinum: Mediastinal contours appear normal. Heart size is normal. Bones and chest wall: No suspicious bony lesions. Overlying soft tissues appear unremarkable. IMPRESSION: No acute cardiopulmonary process. Reviewed by: Anibal Callahan MD on 10/14/2023 9:11 AM [facility] Approved by: Anibal Callahan MD on 10/14/2023 9:11 AM [facility] Station ID: [id number]
--- NOTE | 2023-10-14 09:18 | ED Physician Documentation ---
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, Other : None HEENT: None Psych: None Musculoskeletal: None Derm: None Other Past Medical History: Molar - Past Surgical History Past Surgical History: Yes /TELEVISION INSPECTOR: section, 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 - Present Medications Home Medications: Ambulatory Orders Medication Instructions Recorded Confirmed No Known Home Medications 09/16/23 09/16/23 - Allergies Allergies/Adverse Reactions: Allergies Allergy/AdvReac Type Severity Reaction Status Date / Time No Known Drug Allergies Allergy Verified 09/17/23 11:12 - Social History Does the pt smoke?: No Smoking Status: Never smoker Does the pt drink ETOH?: No Does the pt have substance abuse?: No - Immunizations Immunizations are current?: Yes - POLST Patient has POLST: No Results - Vitals Vitals: Vital Signs - 24 hr 10/14/23 10/14/23 04:34 06:52 Temperature 36.2 C L Heart Rate 79 94 Respiratory 16 16 Rate Blood Pressure 122/69 116/100 H O2 Saturation 100 96 Oxygen O2 Source Room air - Labs Labs: Laboratory Tests 10/14/23 10/14/23 10/14/23 04:50 05:03 05:03 WBC 8.6 RBC 4.26 Hgb 11.9 L Hct 36.3 L MCV 85.2 MCH 27.9 MCHC 32.8 RDW 13.4 Plt Count 315 MPV 8.5 Neut # (Auto) 4.9 Lymph # (Auto) 2.9 [place] # (Auto) 0.6 Eos # (Auto) 0.1 Baso # (Auto) 0.0 Absolute Nucleated RBC 0.00 Nucleated RBC % 0.0 Sodium 135 Potassium 3.4 L Chloride 104 Carbon Dioxide 23 Anion Gap 8.0 BUN 11 Creatinine 0.8 Estimated GFR (MDRD) 83 L Glucose 111 H Calcium 8.7 Total Bilirubin 0.5 AST 14 ALT 10 Alkaline Phosphatase 96 Total Protein 7.9 Albumin 4.4 Globulin 3.5 Albumin/Globulin Ratio 1.3 Lipase 26 Beta HCG, Quant 2146.3 Urine Color Urine Clarity Urine pH Ur Specific [place] Urine Protein Urine Glucose (UA) Urine Ketones Urine Occult Blood Urine Nitrite Urine Bilirubin Urine Urobilinogen Ur Leukocyte Esterase Ur Microscopic Review Urine Culture Comments Urine HCG, Qual 10/14/23 05:03 WBC RBC Hgb Hct MCV MCH MCHC RDW Plt Count MPV Neut # (Auto) Lymph # (Auto) [place] # (Auto) Eos # (Auto) Baso # (Auto) Absolute Nucleated RBC Nucleated RBC % Sodium Potassium Chloride Carbon Dioxide Anion Gap BUN Creatinine Estimated GFR (MDRD) Glucose Calcium Total Bilirubin AST ALT Alkaline Phosphatase Total Protein Albumin Globulin Albumin/Globulin Ratio Lipase Beta HCG, Quant Urine Color YELLOW Urine Clarity CLEAR Urine pH 6.0 Ur Specific [place] 1.025 Urine Protein TRACE Urine Glucose (UA) NEGATIVE Urine Ketones NEGATIVE Urine Occult Blood NEGATIVE Urine Nitrite NEGATIVE Urine Bilirubin NEGATIVE Urine Urobilinogen 0.2 (NORMAL) Ur Leukocyte Esterase NEGATIVE Ur Microscopic Review NOT INDICATED Urine Culture Comments NOT INDICATED Urine HCG, Qual POSITIVE Departure - Departure Disposition: ED Transfer to [facility] Clinical Impression: Molar , Abdominal pain affecting Condition: Serious Forms: PCP List
--- NOTE | 2023-10-14 09:22 | ED Physician Documentation ---
ED Addendum - Addendum Addendum: The SUPPLY CRIB ATTENDANT is in the room talking with the patient on my change of shift. Ultrasound was finishing the ultrasound. Parent findings were a stable size cyst on the right of 5 cm. There were 2 small cyst on the left, 1 of which popped during the ultrasound and the patient's pain decreased a fair amount. No significant findings in the uterus. This was a verbal report at this point. The line technician also conveyed it to the mock up builder. Intention at this point is still to go to the operating room for D&C as presumption is some retained tissue. This would account for the persistent and increasing hCG and consideration for a molar . The quantitative had decreased significantly from 150,000-400 after the initial D&C presuming the correct location for that finding. No other abnormality noted on the pelvic area. The mock up builder did ask for chest x-ray which was obtained and did not show any obvious masses.
--- NOTE | 2023-10-14 10:22 | ANESTHESIA ---
Pre-Anesthesia VS, & Labs - Diagnosis retained poc - Procedure D&C Vital Signs: Temp Pulse Resp BP Pulse Ox O2 Flow Rate 36.2 C L 94 16 116/100 H 96 10/14/23 04:34 10/14/23 06:52 10/14/23 06:52 10/14/23 06:52 10/14/23 06:52 Height: 5 ft 3 in Weight (kg): 80 kg Body Mass Index: 31.2 BMI Classification: Obese - NPO >8 hours - Is Patient ?: No - Lab Results Current Lab Results: Laboratory Tests 10/14/23 05:03: Sodium 135, Potassium 3.4 L, Chloride 104, Carbon Dioxide 23, Anion Gap 8.0, BUN 11, Creatinine 0.8, Estimated GFR (MDRD) 83 L, Glucose 111 H, Calcium 8.7, Total Bilirubin 0.5, AST 14, ALT 10, Alkaline Phosphatase 96, Total Protein 7.9, Albumin 4.4, Globulin 3.5, Albumin/Globulin Ratio 1.3, Lipase 26 10/14/23 05:03: WBC 8.6, RBC 4.26, Hgb 11.9 L, Hct 36.3 L, MCV 85.2, MCH 27.9, MCHC 32.8, RDW 13.4, Plt Count 315, MPV 8.5, Neut # (Auto) 4.9, Lymph # (Auto) 2.9, [place] # (Auto) 0.6, Eos # (Auto) 0.1, Baso # (Auto) 0.0, Absolute Nucleated RBC 0.00, Nucleated RBC % 0.0 10/14/23 04:50: Beta HCG, Quant 2146.3 Fish Bones: 10/14/23 05:03 10/14/23 05:03 Home Medications and Allergies No Known Home Medications 09/16/23 Allergies/Adverse Reactions: Allergies Allergy/AdvReac Type Severity Reaction Status Date / Time No Known Drug Allergies Allergy Verified 09/17/23 11:12 Anes History & Medical History - Anesthetic History Anesthesia Complications: reports: No previous complications Family history of Anesthesia Complications: Denies Family history of Malignant Hyperthermia: Denies - Medical History Cardiovascular: reports: None Pulmonary: reports: None Gastrointestinal: reports: None Urinary: reports: None Neuro: reports: None Musculoskeletal: reports: None Endocrine/Autoimmune: reports: None Blood Disorders: reports: None Skin: reports: None Smoking Status: Never smoker Other Past Medical History: Molar - Surgical History Gynecologic: reports: section, 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 Exam General: Alert, Oriented x3, Cooperative Dental: WNL Mouth Openin Fingerbreadth Neck Mobility: Normal Mallampati classification: II Thyromental Distance: less than 4 cm Respiratory: Lungs clear Cardiovascular: Regular rate Plan Anesthesia Type: General Consent for Procedure(s) Verified and Reviewed: Yes Code Status: Attempt Resuscitation ASA classification: 2-Mild systemic disease Is this case an emergency?: No
[2023-10-14] MEDS ORDERED: LACTATED RINGERS 1,000 ML IV STA (11:03)
[2023-10-14] MEDS ORDERED: MIDAZOLAM 2 MG/2 ML VIAL ONE (11:34)
[2023-10-14] MEDS ORDERED: KETOROLAC 30 MG/ML VIAL ONE (11:35)
[2023-10-14] MEDS ORDERED: PROPOFOL 200 MG/20 ML VIAL IVP ONE (11:35)
[2023-10-14] MEDS ORDERED: ONDANSETRON 4 MG/2 ML VIAL ONE (11:35)
[2023-10-14] MEDS ORDERED: fentaNYL 100 MCG/2 ML VIAL ONE (11:35)
[2023-10-14] MEDS ORDERED: DEXAMETHASONE 4 MG/ML VIAL ONE (11:35)
[2023-10-14] MEDS ORDERED: LIDOCAINE-PF 2% 10 ML AMP SUBQ ONE (11:35)
--- NOTE | 2023-10-14 12:02 | HISTORY & PHYSICAL EXAMINATION ---
HPI - Admitted From Admitted from: ED - History Obtained From Records Reviewed: RN notes reviewed, Old records reviewed History obtained from: Patient Exam limitations: No limitations - History of Present Illness Severity at the worst: reports: Moderate Pain Quality: reports: Sharp Timing: reports: Gradual onset Improved with: reports: Rest HPI Comment/Other: 32 yo woman with molar s/p d&C in September now with rising quant betas. Came to ER today with abdominal pain. IN ER found to have ovarian cyst on left, new, it was 2 cysts and one popped during scanning. cyst on right is table. Quant is up to 2100 from low of 400 after surgery. 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, Other : positive: None HEENT: positive: None Psych: positive: None Musculoskeletal: positive: None Derm: positive: None MRSA Hx?: No Other Past Medical History: Molar - Past Surgical History /PLATE GRINDER: positive: section, 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 Social & Family Hx - Living Situation Living Situation: With spouse/s.o., With family - Social History Does the pt smoke?: No Smoking Status: Never smoker Does the pt drink ETOH?: No Does the pt have substance abuse?: No - POLST Patient has POLST: No Meds/Allgy - Home Medications Home Medications: Ambulatory Orders Medication Instructions Recorded Confirmed No Known Home Medications 09/16/23 09/16/23 - Allergies Allergies/Adverse Reactions: Allergies Allergy/AdvReac Type Severity Reaction Status Date / Time No Known Drug Allergies Allergy Verified 09/17/23 11:12 Review of Systems - Gastrointestinal Gastrointestinal: reports: Abdominal pain (left lower quadrant.) Exam - Vital Signs Reviewed Vital Signs: Yes Vital Signs: Vital Signs x48h Temp Pulse Resp BP Pulse Ox 10/14/23 11:16 84 16 155/92 H 96 10/14/23 06:52 94 16 116/100 H 96 10/14/23 04:34 97.2 F L 79 16 122/69 100 - Physical Exam General Appearance: positive: No acute distress (except sad as she and her are arguing.) Neck: positive: Nml inspection Respiratory: positive: No respiratory distress Abdomen: positive: Other (mild tenderness, more on left.) Extremities: positive: Non-tender Results - Lab Results Fish Bones: 10/14/23 05:03 10/14/23 05:03 Other Lab Results: Lab Results x24hrs 10/14/23 10/14/23 10/14/23 Range/Units 05:03 05:03 05:03 WBC 8.6 (4.8-10.8) x10^3/uL RBC 4.26 (4.20-5.40) 10^6/uL Hgb 11.9 L (12.0-16.0) g/dL Hct 36.3 L (37.0-47.0) % MCV 85.2 (81.0-99.0) fL MCH 27.9 (27.0-31.0) pg MCHC 32.8 (32.0-36.0) g/dL RDW 13.4 (12.0-15.0) % Plt Count 315 (130-450) 10^3/uL MPV 8.5 (7.9-10.8) fL Neut # (Auto) 4.9 (1.5-6.6) 10^3/uL Lymph # (Auto) 2.9 (1.5-3.5) 10^3/uL Desha # (Auto) 0.6 (0.0-1.0) 10^3/uL Eos # (Auto) 0.1 (0.0-0.7) 10^3/uL Baso # (Auto) 0.0 (0.0-0.1) 10^3/uL Absolute Nucleated RBC 0.00 x10^3/uL Nucleated RBC % 0.0 /100WBC Sodium 135 (135-145) mmol/L Potassium 3.4 L (3.5-4.5) mmol/L Chloride 104 (101-111) mmol/L Carbon Dioxide 23 (21-32) mmol/L Anion Gap 8.0 (6-13) BUN 11 (6-20) mg/dL Creatinine 0.8 (0.6-1.3) mg/dL Estimated GFR (MDRD) 83 L (>89) Glucose 111 H (74-104) mg/dL Calcium 8.7 (8.5-10.3) mg/dL Total Bilirubin 0.5 (0.2-1.0) mg/dL AST 14 (10-42) IU/L ALT 10 (10-60) IU/L Alkaline Phosphatase 96 (42-121) IU/L Total Protein 7.9 (6.4-8.9) g/dL Albumin 4.4 (3.2-5.5) g/dL Globulin 3.5 (2.1-4.2) g/dL Albumin/Globulin Ratio 1.3 (1.0-2.2) Lipase 26 (11-82) U/L Beta HCG, Quant mIU/mL Urine Color YELLOW Urine Clarity CLEAR (CLEAR) Urine pH 6.0 (5.0-7.5) PH Ur Specific [place] 1.025 (1.002-1.030) Urine Protein TRACE (NEGATIVE) mg/dL Urine Glucose (UA) NEGATIVE (NEGATIVE) mg/dL Urine Ketones NEGATIVE (NEGATIVE) mg/dL Urine Occult Blood NEGATIVE (NEGATIVE) Urine Nitrite NEGATIVE (NEGATIVE) Urine Bilirubin NEGATIVE (NEGATIVE) Urine Urobilinogen 0.2 (NORMAL) (NORMAL) E.U./dL Ur Leukocyte Esterase NEGATIVE (NEGATIVE) Ur Microscopic Review NOT INDICATED Urine Culture Comments NOT INDICATED Urine HCG, Qual POSITIVE 10/14/23 Range/Units 04:50 WBC (4.8-10.8) x10^3/uL RBC (4.20-5.40) 10^6/uL Hgb (12.0-16.0) g/dL Hct (37.0-47.0) % MCV (81.0-99.0) fL MCH (27.0-31.0) pg MCHC (32.0-36.0) g/dL RDW (12.0-15.0) % Plt Count (130-450) 10^3/uL MPV (7.9-10.8) fL Neut # (Auto) (1.5-6.6) 10^3/uL Lymph # (Auto) (1.5-3.5) 10^3/uL Desha # (Auto) (0.0-1.0) 10^3/uL Eos # (Auto) (0.0-0.7) 10^3/uL Baso # (Auto) (0.0-0.1) 10^3/uL Absolute Nucleated RBC x10^3/uL Nucleated RBC % /100WBC Sodium (135-145) mmol/L Potassium (3.5-4.5) mmol/L Chloride (101-111) mmol/L Carbon Dioxide (21-32) mmol/L Anion Gap (6-13) BUN (6-20) mg/dL Creatinine (0.6-1.3) mg/dL Estimated GFR (MDRD) (>89) Glucose (74-104) mg/dL Calcium (8.5-10.3) mg/dL Total Bilirubin (0.2-1.0) mg/dL AST (10-42) IU/L ALT (10-60) IU/L Alkaline Phosphatase (42-121) IU/L Total Protein (6.4-8.9) g/dL Albumin (3.2-5.5) g/dL Globulin (2.1-4.2) g/dL Albumin/Globulin Ratio (1.0-2.2) Lipase (11-82) U/L Beta HCG, Quant 2146.3 mIU/mL Urine Color Urine Clarity (CLEAR) Urine pH (5.0-7.5) PH Ur Specific [place] (1.002-1.030) Urine Protein (NEGATIVE) mg/dL Urine Glucose (UA) (NEGATIVE) mg/dL Urine Ketones (NEGATIVE) mg/dL Urine Occult Blood (NEGATIVE) Urine Nitrite (NEGATIVE) Urine Bilirubin (NEGATIVE) Urine Urobilinogen (NORMAL) E.U./dL Ur Leukocyte Esterase (NEGATIVE) Ur Microscopic Review Urine Culture Comments Urine HCG, Qual Impression/Plan - Problem List Problem List: molar , s/p D&C with rising quant betas. plan was if continued rising do another D&C. Cyst on overy is likley from hormonal stimulation from rising betas. not worrisome at this moment. plan of care discussed previously and again today. consents signed.
[2023-10-14] MEDS ORDERED: metroNIDAZOLE 500 MG/100 ML 500 MG/100 ML BAG ONE (12:26)
[2023-10-14] MEDS ORDERED: LACTATED RINGERS 1,000 ML IV ONE (12:41)
--- NOTE | 2023-10-14 12:42 | Ultrasound Report ---
PROCEDURE: OB 1st Trimester w/TV INDICATIONS: recent h/o molar , LLQ pain, rising quant TECHNIQUE: Real-time endovaginal scanning was performed of the pelvic organs, with image documentation. COMPARISON: None. FINDINGS: Uterus: Uterus is anteverted and measures 12.1 x 3.5 x 5.4 cm. The myometrium is homogeneous. The e ndometrium measures 3.6 mm in combined thickness. No gestational sac or intrauterine station visuali zed. Ovaries: The right ovary measures 5.9 x 4.7 x 4.4 cm, with a calculated ovarian volume of 63.8 cc. The left ovary measures 5.7 x 3.4 x 4.2 cm, with a calculated ovarian volume of 42.6 cc. There is a right 5.5 x 2.9 x 4.6 cm ovarian cyst. A right hypoechoic nodule is redemonstrated which m easures 1.5 x 1.0 x 1.2 cm and may represent a dominant ovarian follicle. There is a superior left ovarian cyst which measures 3.3 x 3.0 x 3.0 cm. An inferior left ovarian cys t which measures 3.3 x 2.9 x 2.6 cm was visualized at the beginning of the study; however this cyst r uptured during the exam. Other: No pathologic free abdominal or pelvic fluid. IMPRESSION: 1. No intrauterine gestation or gestational sac visualized. No sonographic findings to suggest retain ed products of conception. 2. Bilateral simple ovarian cysts. 6-12 week follow-up recommended. 3. One of 2 left ovarian cysts ruptured during the course of the pelvic ultrasound. Reviewed by: Josie Sampson MD on 10/14/2023 12:41 PM PST Approved by: Josie Sampson MD on 10/14/2023 12:41 PM PST Station ID: [id number]
[2023-10-14] MEDS ORDERED: fentaNYL 100 MCG/2 ML VIAL IVP PRN (12:58)
[2023-10-14] MEDS ORDERED: ONDANSETRON 4 MG/2 ML VIAL IVP PRN ×2 (12:58→13:20)
[2023-10-14] MEDS ORDERED: NALOXONE 0.4 MG/ML VIAL IVP PRN (12:58)
[2023-10-14] MEDS ORDERED: MORPHINE 2 MG/ML CARPUJECT IVP PRN (12:58)
[2023-10-14] MEDS ORDERED: METOCLOPRAMIDE 10 MG/2 ML VIAL IVP PRN (12:58)
[2023-10-14] MEDS ORDERED: HYDROmorphone 0.5 MG/0.5 ML SYRINGE IVP PRN (12:58)
[2023-10-14] MEDS ORDERED: ATROPINE ABBOJECT 1 MG/10 ML SYRINGE IVP PRN (12:58)
[2023-10-14] MEDS ORDERED: ePHEDrine 50 MG/ML VIAL IVP PRN (12:58)
[2023-10-14] MEDS ORDERED: LACTATED RINGERS 1,000 ML IV SCH ×2 (13:00→14:00)
[2023-10-14] MEDS ORDERED: oxyCODONE 5 MG TABLET PO PRN (13:20)
--- NOTE | 2023-10-14 13:24 | OPERATIVE REPORT ---
Operative Report - General Procedure Date: 10/14/23 Planned Procedure: suction D&C Pre-Op Diagnosis: molar with rising beta hcg Procedure Performed: suction D&C Post Op Diagnosis: same - Procedure Note Primary Surgeon: Carrol Spear MD Anesthesia Provider: Mona Urias CRNA Anesthesia Technique: General LMA Pathology: endometrial curettings. IV Fluids (mL): 600 Estimated Blood Loss (mL): 10 Indications: rising quant betas after D&C with molar . need to evacuate uterus again. Findings: normal size uterus. small amount of tissue. Complications: none - Other Other Information/Narrative: Rising quants, now 1200. Needs to have uterus evacuated again. consents signed. Patient brought to OR. prepped and draped as usual. legs in Gabe stirrups. exam done. cervix grasped with ring forceps and dilated to allow 7 mm suction cannula to pass. curette placed and suction turned on to green zone. uterus emptied. sharp curettage done. one more pass with suction and minimal tissue. Patient awakened and brought to PACU. will be discharged later today. recheck blood in 1 week.
--- NOTE | 2023-10-14 13:46 | ANESTHESIA POST OP EVALUATION ---
Anesthesia Post Eval - Post Anesthesia Eval Vitals: Last Vital Signs Temp 37.1 C 10/14/23 13:31 Pulse 87 10/14/23 13:31 Resp 14 10/14/23 13:31 BP 120/73 10/14/23 13:31 Pulse Ox 99 10/14/23 13:31 O2 Flow Rate CV Function Including HR & BP: Stable Pain Control: Satisfactory Nausea & Vomiting: Negative Mental Status: Baseline Respiratory Status: Airway Patent Hydration Status: Satisfactory Anesthesia Complications: None
[2023-10-14 13:58] VITALS: BP 116/69; O2SAT 97
== END 2023-10-14 11:24 | disposition home or self-care (01) ==
LOC: ED 04:20 → SDS 11:23
PROVIDERS: ATTEND Obstetrics & Gynecology
PROC: 10D07Z8 Extraction of Products of Conception, Other, Via Natural or Artificial Opening (ICD-10-PCS; principal; 2023-10-14 12:00)
DX: O02.0 Blighted ovum and nonhydatidiform mole (principal); N83.202 Unspecified ovarian cyst, left side; N83.201 Unspecified ovarian cyst, right side; O08.89 Other complications following an ectopic and molar pregnancy
CPT/HCPCS: 36415; 59820; 71045; 76801; 76817; 80053; 81003; 81025; 83690; 84702; 85025; 96374; 96375; 96376; 99284; 99285; J1170; J7120; 81001; 87086

== ENCOUNTER 2023-10-21 13:27 | Outpatient (CLI) | payer OTHER | END 2023-10-21 13:28 | disposition home or self-care (01) | LOC: LAB.N 13:27 | PROVIDERS: ATTEND Obstetrics & Gynecology | DX: O02.0 Blighted ovum and nonhydatidiform mole (principal) | CPT/HCPCS: 36415; 84702 ==

== ENCOUNTER 2023-10-24 22:47 | Emergency (ER) | payer OTHER ==
[2023-10-24] MEDS ORDERED: ONDANSETRON 4 MG/2 ML VIAL IVP STA (23:34)
[2023-10-24] MEDS ORDERED: HYDROmorphone 0.5 MG/0.5 ML SYRINGE IVP STA (23:34)
[2023-10-24] MEDS ORDERED: KETOROLAC 15 MG/ML VIAL IVP STA (23:34)
--- NOTE | 2023-10-24 23:34 | ED Physician Documentation ---
PD HPI FEMALE - Stated complaint Stated Complaint: PELVIC PX/LOWER LT BACK PX - Chief complaint Chief Complaint: Abd Pain - History obtained from History obtained from: Patient, Family () - History of Present Illness OB-BATCH WEIGHER History: G (5), Prior vag delivery (3), Prior ectopic (1) - Additional information Additional information: HPI is from patient as well as from ( is in the room at patient's bedside and, with her expressed permission, participates in the HPI/ROS). Patient was diagnosed with molar in September (last month), and was taken to the OR where she underwent D&C. Unfortunately, her quantitative hCG levels were subsequently noted to be rising; she ultimately went back to the OR for a repeat D&C on October 14, 2023. 3 days ago (October 21), patient had an outpatient quantitative hCG which again was rising. The patient's says that her LAND MANAGEMENT FORESTER has referred the patient to a LAND MANAGEMENT FORESTER group out of [place]/ [place]. Patient presents at this time due to worsening left pelvic pain that radiates to her left lower back. She indicates that this is the same pain she has been having all along since September before the first D&C, but it is significantly worse tonight. The pain is exacerbated with movement as well as palpation. There are no ameliorating factors. She has nausea but no vomiting, denies feve rs. She does not have any prescription pain medications at home and has only been taking Tylenol which has provided adequate relief until tonight. She denies vaginal bleeding, vaginal discharge. She denies dysuria, urinary frequency. Review of Systems Constitutional: reports: Reviewed and negative Cardiac: reports: Reviewed and negative GI: reports: Abdominal Pain, Nausea. denies: Vomiting, Constipation, Diarrhea PD PAST MEDICAL HISTORY - Past Medical History Past Medical History: Yes Cardiovascular: None Respiratory: None Neuro: None Endocrine/Autoimmune: None GI: None BATCH WEIGHER: Ovarian cysts, Other : None HEENT: None Psych: None Musculoskeletal: None Derm: None - Past Surgical History Past Surgical History: Yes /BATCH WEIGHER: section, 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 - Present Medications Home Medications: Ambulatory Orders Medication Instructions Recorded Confirmed Ondansetron Odt [Zofran Odt] 4 mg TL Q6H PRN #14 tablet 10/25/23 Oxycodone HCl/Acetaminophen 1 - 2 each PO Q6H PRN #14 tablet 10/25/23 [Percocet 5-325 mg Tablet] - Allergies Allergies/Adverse Reactions: Allergies Allergy/AdvReac Type Severity Reaction Status Date / Time No Known Drug Allergies Allergy Verified 10/24/23 23:01 - Social History Does the pt smoke?: No Smoking Status: Never smoker Does the pt drink ETOH?: No Does the pt have substance abuse?: No - Immunizations Immunizations are current?: Yes - POLST Patient has POLST: No PD ED PE NORMAL - Vitals Vital signs reviewed: Yes - General General: Alert and oriented X 3, No acute distress, Well developed/nourished - Cardiac Cardiac: RRR, No murmur - Respiratory Respiratory: No respiratory distress, Clear bilaterally - Abdomen Abdomen: Soft, Non distended - Back Back: No CVA TTP PD ED PE EXPANDED - Abdomen Abdomen: Tender to palpation (LLQ and left anterior pelvis). No: Rebound, Guarding Results - Vitals Vitals: Oxygen O2 Source Room air - Labs Labs: Laboratory Tests 10/24/23 10/24/23 10/24/23 23:00 23:00 23:20 WBC 10.3 RBC 4.26 Hgb 11.9 L Hct 36.6 L MCV 85.9 MCH 27.9 MCHC 32.5 RDW 13.2 Plt Count 333 MPV 8.7 Neut # (Auto) 6.5 Lymph # (Auto) 2.8 [place] # (Auto) 0.8 Eos # (Auto) 0.1 Baso # (Auto) 0.0 Absolute Nucleated RBC 0.00 Nucleated RBC % 0.0 Sodium Potassium Chloride Carbon Dioxide Anion Gap BUN Creatinine Estimated GFR (MDRD) Glucose Calcium Total Bilirubin AST ALT Alkaline Phosphatase Total Protein Albumin Globulin Albumin/Globulin Ratio Lipase Beta HCG, Quant Urine Color YELLOW Urine Clarity CLEAR Urine pH 7.5 Ur Specific [place] 1.015 Urine Protein NEGATIVE Urine Glucose (UA) NEGATIVE Urine Ketones NEGATIVE Urine Occult Blood NEGATIVE Urine Nitrite NEGATIVE Urine Bilirubin NEGATIVE Urine Urobilinogen 1 (NORMAL) Ur Leukocyte Esterase NEGATIVE Ur Microscopic Review NOT INDICATED Urine Culture Comments NOT INDICATED Urine HCG, Qual POSITIVE 10/24/23 23:20 WBC RBC Hgb Hct MCV MCH MCHC RDW Plt Count MPV Neut # (Auto) Lymph # (Auto) [place] # (Auto) Eos # (Auto) Baso # (Auto) Absolute Nucleated RBC Nucleated RBC % Sodium 136 Potassium 3.4 L Chloride 101 Carbon Dioxide 26 Anion Gap 9.0 BUN 10 Creatinine 0.8 Estimated GFR (MDRD) 83 L Glucose 87 Calcium 9.2 Total Bilirubin 0.4 AST 13 ALT 10 Alkaline Phosphatase 101 Total Protein 8.1 Albumin 4.5 Globulin 3.6 Albumin/Globulin Ratio 1.3 Lipase 28 Beta HCG, Quant 2699.1 Urine Color Urine Clarity Urine pH Ur Specific [place] Urine Protein Urine Glucose (UA) Urine Ketones Urine Occult Blood Urine Nitrite Urine Bilirubin Urine Urobilinogen Ur Leukocyte Esterase Ur Microscopic Review Urine Culture Comments Urine HCG, Qual - Rads (name of study) OB 1st trimester US with TV Relevant Findings:: Prelim report reviewed, See rad report CT A/P with IV contrast Relevant Findings:: Prelim report reviewed, See rad report PD Medical Decision Making - ED course Complexity details: reviewed old records, reviewed results, re-evaluated patient, considered differential, d/w patient ED course: Presents due to increasing pelvic pain recently underwent D&C x 2 for molar which was confirmed with first D&C by biopsy.Quantitative HCG was as high as 156,[phone] (09/16 prior to first d&c), dropping to 434 on 10/01 but has been increaasing since then (2328 on 10/21 and tonight's result is 2699). Tonight's ultrasound shows bilateral ovarian cysts, some of which are complex. There is no evidence of torsion on ultrasound. Also noted is a "small cystic structure versus debris-containing fluid within the endometrium measuring 1.4 x 1.2 cm", per radiologist reading. This was noted on previous ultrasound although has slightly increased in size. Patient is given 50 mg IV Toradol, 0.5 mg IV Dilaudid, and 4 mg IV Zofran. During ED stay, she required 2 more doses of Dilaudid 0.5 mg (total of 1.5 mg). She is also given 5 mg p.o. oxycodone.Eventually, with these interventions, patient is reporting adequate relief of her symptoms. I discussed this case, including the results of the blood tests and the ultrasound, with Dr. Hanson (on-call LAND MANAGEMENT FORESTER for [facility]). Prior conversation, patient is safe and appropriate for discharge at this time. Subsequent to my conversation with Dr. Hanson, the patient was reporting increasing pain (this was prior to the third dose of 0.5 mg Dilaudid). A CT A/P with IV contrast was then performed and there are no findings on this study other than ovarian cysts as noted, and better characterized, on the US performed earlier tonight. I again discussed the case with Dr. Hanson to update him with the CT findings and the plan remains to discharge patient provided adequate symptom control is achieved, strict return precautions reviewed with the patient, and she is to continue to pursue follow-up with LAND MANAGEMENT FORESTER referral to a group out of [place]. She is provided a take-home pack of Percocet and ondansetron, and I have electronically submitted prescriptions for these medications to patient's pharmacy of choice. Departure - Departure Disposition: 01 Home, Self Care Clinical Impression: Ovarian cyst Qualifiers: Laterality: bilateral Qualified Code(s): N83.201 - Unspecified ovarian cyst, right side Condition: Good Instructions: ED Cyst Ovarian Prescriptions: Oxycodone HCl/Acetaminophen [Percocet 5-325 mg Tablet] 1 - 2 each PO Q6H PRN #14 tablet PRN Reason: pain Ondansetron Odt [Zofran Odt] 4 mg TL Q6H PRN #14 tablet PRN Reason: Nausea / Vomiting Comments: The ultrasound performed tonight shows multiple ovarian cysts in both the right and left ovary. These might account for the pelvic pain that you are experiencing. At this time, neither the ultrasound nor the CT scan show any other concerning abnormality. I have electronically submitted prescriptions for Percocet (narcotic/opiate pain medication) and ondansetron (antinausea medication) to the [facility] pharmacy in [place]. I am prescribing a short course of narcotic pain medication for you. These are potentially dangerous and addictive medications that should be used carefully. These medications may constipate you. Take an tppx-bvp-nvinjby stool softener (docusate) twice daily with plenty of water while taking these medications. If you go 24 hours without a bowel movement, take [id number] miralax, per package instructions. Do not drink or drive while taking these medications. If you received narcotic or sedating medications while in the emergency department, do not drive for 24 hours. Store this medication in a safe, secure place and out of reach of children. It is a violation of federal law to give or sell this medication to another person or to use in a manner other than prescribed. The ED will not refill narcotic prescriptions, including prescriptions lost or stolen. To dispose of unwanted medications: 1. [facility] [address] in [place] has a medication drop box. They accept prescription medications (in pill form) Friday through Friday 9:00 a.m. to 5:00 p.m. 2. The [facility] [place] [employer] accepts prescription medications (in pill form only) for disposal year round. Call for more information. 3. Contact the [facility] for the next [facility] sponsored prescription drug collection event. , [phone], or [phone]; Forms: PCP List Discharge Date/Time: 10/25/23 06:34
[2023-10-24 23:38] LABS: BASOPHILS % (AUTO) 0.2 %; EOSINOPHILS # (AUTO) 0.1 10^3/uL (0.0-0.7); EOSINOPHILS % (AUTO) 0.6 %; HCT - HEMATOCRIT 36.6 % (37.0-47.0); HGB - HEMOGLOBIN 11.9 g/dL (12.0-16.0); LYMPHOCYTES # (AUTO) 2.8 10^3/uL (1.5-3.5); LYMPHOCYTES % (AUTO) 27.5 %; MEAN CORPUSCULAR HEMOGLOBIN 27.9 pg (27.0-31.0); MEAN CORPUSCULAR HGB CONC 32.5 g/dL (32.0-36.0); MEAN CORPUSCULAR VOLUME 85.9 fL (81.0-99.0); MEAN PLATELET VOLUME 8.7 fL (7.9-10.8); MONOCYTES # (AUTO) 0.8 10^3/uL (0.0-1.0); NEUTROPHILS # (AUTO) 6.5 10^3/uL (1.5-6.6); NEUTROPHILS % (AUTO) 63.3 %; PLT - PLATELET COUNT 333 10^3/uL (130-450); RED BLOOD COUNT 4.26 10^6/uL (4.20-5.40); RED CELL DISTRIBUTION WIDTH 13.2 % (12.0-15.0); WHITE BLOOD COUNT 10.3 x10^3/uL (4.8-10.8)
[2023-10-24 23:44] LABS: BILIRUBIN,URINE NEGATIVE (NEGATIVE); CLARITY,URINE CLEAR (CLEAR); GLUCOSE, URINE (UA) NEGATIVE (NEGATIVE); KETONES,URINE (UA) NEGATIVE (NEGATIVE); LEUKOCYTE ESTERASE, URINE NEGATIVE (NEGATIVE); NITRITE,URINE NEGATIVE (NEGATIVE); OCCULT BLOOD,URINE NEGATIVE (NEGATIVE); PH,URINE 7.5 PH (5.0-7.5); PROTEIN,URINE NEGATIVE (NEGATIVE); UROBILINOGEN,URINE 1 (NORMAL) E.U./dL (NORMAL)
[2023-10-24 23:45] LABS: HCG UR QUAL POSITIVE
[2023-10-24 23:57] LABS: ALBUMIN 4.5 g/dL (3.2-5.5); ALBUMIN/GLOBULIN RATIO 1.3 (1.0-2.2); BILIRUBIN,TOTAL 0.4 mg/dL (0.2-1.0); CALCIUM 9.2 mg/dL (8.5-10.3); CREATININE 0.8 mg/dL (0.6-1.3); POTASSIUM 3.4 mmol/L (3.5-4.5); TOTAL PROTEIN 8.1 g/dL (6.4-8.9)
--- NOTE | 2023-10-25 01:09 | Ultrasound Report ---
PROCEDURE: OB 1st Trimester w/TV INDICATIONS: pelvic pain, recent molar OUTSIDE/PRIOR DATING DATA: Last menstrual period (LMP): Unknown. TECHNIQUE: Real-time scanning was performed of the fetus and maternal pelvic organs, with image documentation. Endovaginal scanning was also performed to better visualize the fetus and maternal ovaries. COMPARISON: October 14, 2023 FINDINGS: Cystic structure versus free fluid within the endometrium measuring 1.4 x 1.2 cm. Positive hCG. Recent D&C, a molar . Enlarged right ovary measuring 76 cc. Multiple complex cysts measuring 5.2 x 4.8 and 2.6 x 2.4 cm. Mildly enlarged left ovary, measuring 16 cc. Mildly complex cyst/follicles are also seen. Color flows are seen. IMPRESSION: Increased conspicuity of a small cystic structure versus debris-containing fluid within the endometri um, measuring 1.4 x 1.2 cm. Consider correlate with hCG trends given history of molar . Enlarged right ovary, containing multiple complex cysts. Color flows are currently seen, however in t he setting of pain, intermittent torsion is possible. The left ovary is mildly enlarged. Consider gynecologic consultation, and if intervention is not pursued, consider follow-up with ultras ound or MRI. Reviewed by: Chon Rosales MD on 10/25/2023 1:08 AM PST Approved by: Chon Rosales MD on 10/25/2023 1:08 AM PST Station ID: [id number]
[2023-10-25] MEDS ORDERED: HYDROmorphone 1 MG/ML CARPUJECT IVP STA ×2 (01:22→03:06)
[2023-10-25] MEDS ORDERED: oxyCODONE 5 MG TABLET PO STA (01:22)
[2023-10-25] MEDS ORDERED: ONDANSETRON 4 MG/2 ML VIAL IVP STA (03:06)
[2023-10-25] MEDS ORDERED: iohexoL-300 100 ML VIAL ONE (03:12)
[2023-10-25] MEDS ORDERED: iohexoL-300 100 ML VIAL IVP ONE (04:22)
[2023-10-25] MEDS ORDERED: oxyCODONE/ACET 5/325 Prepack 4 PO STA (05:51)
[2023-10-25] MEDS ORDERED: ONDANSETRON ODT 4 MG Prepack 2 TL PRN (05:51)
[2023-10-25 06:36] VITALS: BP 108/56; O2SAT 99
--- NOTE | 2023-10-25 08:23 | CT Report ---
PROCEDURE: Abdomen/Pelvis W INDICATIONS: abd. pain CONTRAST: 100 ML OMNI 300 TECHNIQUE: After the administration of intravenous contrast, a CT scan of the abdomen and pelvis was performed. Images were recorded and evaluated at appropriate window settings. Reformats: coronal and sagittal. F or radiation dose reduction, the following was used: automated exposure control, adjustment of mA and /or kV according to patient size. COMPARISON: None. FINDINGS: Image quality: Excellent. Lung bases and heart: Small subpleural bleb is noted in lateral left lung base. No pleural effusion o r pneumothorax. Heart size is normal no pericardial effusion. Liver: No solid mass. Gallbladder and biliary tree: No radiopaque stones or wall thickening. No biliary dilation. Spleen: No splenomegaly. Pancreas: No pancreatic ductal dilation. Adrenals: No adrenal nodule. Kidneys and ureters: No hydronephrosis. No renal cystic lesion which requires follow up. No solid mas s. Bowel and peritoneum: No bowel distension. No pathologic free fluid. Mild fecal stasis throughout the colon is seen. Lymph nodes: No central or retroperitoneal adenopathy. Vessels: No infrarenal aortic aneurysm. PELVIS Reproductive organs: There is suggestion of a right ovarian cyst measures 3.8 x 3.5 cm in size. Small er cysts versus follicles are noted in left ovary measures up to 1.8 cm in size.. Bladder: No abnormal wall thickening, accounting for underdistention. Pelvic lymph nodes: No pelvic adenopathy by size criteria. Bones: No aggressive osseous abnormality. Other: No significant ventral or inguinal hernia. IMPRESSION: 1. 3.8 x 3.5 cm right ovarian cyst. Smaller follicles versus cysts in left ovary as above. 2. No bowel obstruction or abnormal bowel wall thickening. No abscess collection. No free fluid of fr ee air. No significant discrepancies from pulmonary bleeding. Reviewed by: Vahid Martin MD on 10/25/2023 8:22 AM [facility] Approved by: Vahid Martin MD on 10/25/2023 8:22 AM PST Station ID: [id number]
== END 2023-10-25 06:34 | disposition home or self-care (01) ==
LOC: ED 22:47
DX: R10.2 Pelvic and perineal pain (principal); N83.202 Unspecified ovarian cyst, left side; N83.201 Unspecified ovarian cyst, right side
CPT/HCPCS: 36415; 74177; 76801; 76817; 80053; 81003; 81025; 83690; 84702; 85025; 96374; 96375; 96376; 99284; 99285; A9270; J1170; Q9967; 81001; 87086

== ENCOUNTER 2023-10-26 23:00 | Observation (INO) | payer OTHER ==
[2023-10-27] MEDS ORDERED: SODIUM CHLORIDE 0.9% 1,000 ML IV STA (00:39)
[2023-10-27] MEDS ORDERED: ACETAMINOPHEN 1,000 MG/100 ML 1,000 MG/100 ML BAG IV ONE (00:39)
[2023-10-27] MEDS ORDERED: KETOROLAC 15 MG/ML VIAL IVP STA (00:39)
--- NOTE | 2023-10-27 00:40 | ED Physician Documentation ---
PD HPI ABD PAIN - Stated complaint Stated Complaint: BACK PX RT SIDE - Chief complaint Chief Complaint: Abd Pain - History obtained from History obtained from: Patient, Family - Additional information Additional information: 32-year-old female with history of recent molar status post D&C x 2 presents by private vehicle from home for right lower quadrant abdominal pain. Patient has been seen several times in the emergency department for left-sided pain, she came today because her pain is on the right-hand side and not controlled with the pain medications that she was sent home on recently. She has pending CAMP MANAGER oncology referral in [place]. Review of Systems Constitutional: denies: Fever, Chills GI: reports: Abdominal Pain. denies: Nausea, Vomiting, Constipation, Diarrhea : denies: Dysuria, Frequency, Hesitancy Musculoskeletal: denies: Neck pain, Back pain, Extremity pain Neurologic: denies: Generalized weakness, Focal weakness, Numbness PD PAST MEDICAL HISTORY - Past Medical History Cardiovascular: None Respiratory: None Neuro: None Endocrine/Autoimmune: None GI: None CAMP MANAGER: Ovarian cysts, Other : None HEENT: None Psych: None Musculoskeletal: None Derm: None - Past Surgical History Past Surgical History: Yes /CAMP MANAGER: section, 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 - Present Medications Home Medications: Ambulatory Orders Medication Instructions Recorded Confirmed Ondansetron Odt [Zofran Odt] 4 mg TL Q6H PRN #14 tablet 10/25/23 10/26/23 Oxycodone HCl/Acetaminophen 1 - 2 each PO Q6H PRN #14 tablet 10/25/23 10/26/23 [Percocet 5-325 mg Tablet] - Allergies Allergies/Adverse Reactions: Allergies Allergy/AdvReac Type Severity Reaction Status Date / Time No Known Drug Allergies Allergy Verified 10/26/23 23:40 - Social History Does the pt smoke?: No Smoking Status: Never smoker Does the pt drink ETOH?: No Does the pt have substance abuse?: No - Immunizations Immunizations are current?: Yes - POLST Patient has POLST: No PD ED PE NORMAL - Vitals Vital signs reviewed: Yes - General General: Alert and oriented X 3, Well developed/nourished - Cardiac Cardiac: RRR, Strong equal pulses - Respiratory Respiratory: No respiratory distress, Clear bilaterally - Abdomen Abdomen: Soft, Other (RLQ tenderness to deep palpation) - Derm Derm: Normal color, Warm and dry, No rash - Extremities Extremities: No deformity, No tenderness to palpate, Normal ROM s pain, No edema - Neuro Neuro: Alert and oriented X 3, seam rubbing machine operator 2-12 intact, No motor deficit, Normal speech Results - Vitals Vitals: Vital Signs - 24 hr 10/26/23 10/27/23 10/27/23 23:41 01:20 03:21 Temperature 36.1 C L 36.2 C L 36.4 C L Heart Rate 82 84 86 Respiratory 16 16 16 Rate Blood Pressure 115/57 L 113/72 124/64 O2 Saturation 100 100 100 10/27/23 10/27/23 04:00 04:59 Temperature 36.4 C L Heart Rate 86 86 Respiratory 16 16 Rate Blood Pressure 119/76 O2 Saturation 100 100 Oxygen O2 Source Room air - Labs Labs: Laboratory Tests 10/27/23 10/27/23 00:55 00:55 WBC 9.6 RBC 3.91 L Hgb 11.1 L Hct 33.5 L MCV 85.7 MCH 28.4 MCHC 33.1 RDW 13.2 Plt Count 286 MPV 8.8 Neut # (Auto) 6.6 Lymph # (Auto) 2.4 [place] # (Auto) 0.5 Eos # (Auto) 0.0 Baso # (Auto) 0.0 Absolute Nucleated RBC 0.00 Nucleated RBC % 0.0 Sodium 135 Potassium 3.6 Chloride 100 L Carbon Dioxide 24 Anion Gap 11.0 BUN 8 Creatinine 0.7 Estimated GFR (MDRD) 97 Glucose 114 H Calcium 8.9 Total Bilirubin 0.4 AST 13 ALT 9 L Alkaline Phosphatase 89 Total Protein 7.4 Albumin 4.2 Globulin 3.2 Albumin/Globulin Ratio 1.3 Lipase 19 Beta HCG, Quant 3096.2 PD Medical Decision Making - ED course Complexity details: reviewed old records, reviewed results, re-evaluated patient, considered differential, d/w patient, d/w family, d/w qa consultant ED course: Patient with history of molar , status post D&C x 2, continued uptrending hCG levels presenting for right lower quadrant abdominal pain not controlled with home pain medications. Abdomen is soft, previous records show that patient has a large cysts on both sides. At this time we do not have ultrasound capabilities since it is after hours, will order CT scan of the abdomen and pelvis. Laboratory work is reviewed, there continues to be uptrending hCG, 3096 today (10/24 2098, 10/[address] of the abdomen pelvis shows normal appendix, grossly stable appearance of the right-sided cyst. Patient reassessed, pain is still poorly controlled. Dilaudid ordered for pain. I discussed the patient's case with on-call INSPECTOR FINAL ASSEMBLY ELECTRICAL Dr. Hanson, who stated that there is concern that patient has choriocarcinoma contributing to her symptoms, however patient would benefit from CAMP MANAGER oncology. No further recommendations from an ER standpoint, however if patient's pain is uncontrolled he offered admission for pain control. Shared decision making with patient and at bedside. Patient prefers to be admitted for pain control at this time. Departure - Departure Disposition: 66 [facility] DC/Xfer Clinical Impression: Right sided abdominal pain Condition: Stable
[2023-10-27 00:59] LABS: BASOPHILS % (AUTO) 0.2 %; EOSINOPHILS % (AUTO) 0.4 %; HCT - HEMATOCRIT 33.5 % (37.0-47.0); HGB - HEMOGLOBIN 11.1 g/dL (12.0-16.0); LYMPHOCYTES # (AUTO) 2.4 10^3/uL (1.5-3.5); LYMPHOCYTES % (AUTO) 25.1 %; MEAN CORPUSCULAR HEMOGLOBIN 28.4 pg (27.0-31.0); MEAN CORPUSCULAR HGB CONC 33.1 g/dL (32.0-36.0); MEAN CORPUSCULAR VOLUME 85.7 fL (81.0-99.0); MEAN PLATELET VOLUME 8.8 fL (7.9-10.8); MONOCYTES # (AUTO) 0.5 10^3/uL (0.0-1.0); MONOCYTES % (AUTO) 5.2 %; NEUTROPHILS # (AUTO) 6.6 10^3/uL (1.5-6.6); NEUTROPHILS % (AUTO) 68.7 %; PLT - PLATELET COUNT 286 10^3/uL (130-450); RED BLOOD COUNT 3.91 10^6/uL (4.20-5.40); RED CELL DISTRIBUTION WIDTH 13.2 % (12.0-15.0); WHITE BLOOD COUNT 9.6 x10^3/uL (4.8-10.8)
[2023-10-27] MEDS ORDERED: iohexoL-300 100 ML VIAL ONE (01:21)
[2023-10-27 01:46] LABS: ALBUMIN 4.2 g/dL (3.2-5.5); ALBUMIN/GLOBULIN RATIO 1.3 (1.0-2.2); BILIRUBIN,TOTAL 0.4 mg/dL (0.2-1.0); CALCIUM 8.9 mg/dL (8.5-10.3); CREATININE 0.7 mg/dL (0.6-1.3); POTASSIUM 3.6 mmol/L (3.5-4.5); TOTAL PROTEIN 7.4 g/dL (6.4-8.9)
[2023-10-27] MEDS ORDERED: iohexoL-300 100 ML VIAL IVP ONE (02:18)
[2023-10-27] MEDS ORDERED: HYDROmorphone 1 MG/ML CARPUJECT IVP STA (03:25)
--- NOTE | 2023-10-27 04:02 | CONSULTATION NOTE ---
Surgery Consult - Home Meds/Allergies Allergies/Adverse Reactions: Allergies Allergy/AdvReac Type Severity Reaction Status Date / Time No Known Drug Allergies Allergy Verified 10/26/23 23:40 - Vital Signs Vital Signs: Last Vital Signs Temp 97.5 F L 10/27/23 03:21 Pulse 86 10/27/23 03:21 Resp 16 10/27/23 03:21 BP 124/64 10/27/23 03:21 Pulse Ox 100 10/27/23 03:21 O2 Flow Rate Intake & Output: Intake & Output 10/24/23 10/25/23 10/26/23 10/27/23 23:59 23:59 23:59 23:59 Intake Total 1100.000 Balance 1100.000 - Lab Results Result Diagrams: 10/27/23 00:55 10/27/23 00:55
[2023-10-27] MEDS ORDERED: SODIUM CHLORIDE FLUSH 0.9% 10 ML SYRINGE IVP PRN (04:26)
[2023-10-27] MEDS ORDERED: ONDANSETRON 4 MG/2 ML VIAL IVP PRN (04:28)
[2023-10-27] MEDS ORDERED: MORPHINE 2 MG/ML CARPUJECT IVP PRN (04:28)
--- NOTE | 2023-10-27 05:04 | HISTORY & PHYSICAL EXAMINATION ---
History of Present Illness - History of Present Illness HPI Comment/Other: Patient is a 32-year-old status post D&C x 2 for complete molar that showed a complete mole, first on 09/16/2023 then repeated on 10/14/2023. She came to the ED 2 days ago with left-sided pain that was initially controlled with oral pain medications. Last night she had worsening pain in the right side, took two percocet instead of her usual one and became nauseated and dizzy. She came to the ED for acute pain. It is intermittently severe and appears better now, but she does not think she can tolerate the pain at home. C T scan showed cyst of similar size as previous. All other symptoms reviewed and were negative except per HPI. 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: Ovarian cysts (Possible theca lutein cyst), Other (molar ) : reports: None HEENT: reports: None Psych: reports: None Musculoskeletal: reports: None Derm: reports: None MRSA Hx?: No - Past Surgical History /POULTRY HUSBANDRY TEACHER: reports: section (x2), 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 (x2 molar ) - Family & Social History Living Situation: With spouse/s.o., With family - Substance History Use: Uses substance without health or social issues: NONE - POLST Patient has POLST: No POLST Status: Full Code Meds/Allgy - Home Medications Home Medications: Ambulatory Orders Medication Instructions Recorded Confirmed Ondansetron Odt [Zofran Odt] 4 mg TL Q6H PRN #14 tablet 10/25/23 10/26/23 Oxycodone HCl/Acetaminophen 1 - 2 each PO Q6H PRN #14 tablet 10/25/23 10/26/23 [Percocet 5-325 mg Tablet] - Allergies Allergies/Adverse Reactions: Allergies Allergy/AdvReac Type Severity Reaction Status Date / Time No Known Drug Allergies Allergy Verified 10/26/23 23:40 Exam - Vital Signs Vital Signs: Vital Signs x48h Temp Pulse Resp BP Pulse Ox 10/27/23 04:59 86 16 119/76 100 10/27/23 04:00 97.5 F L 86 16 100 10/27/23 03:21 97.5 F L 86 16 124/64 100 10/27/23 01:20 97.2 F L 84 16 113/72 100 10/26/23 23:41 97.0 F L 82 16 115/57 L 100 - Physical Exam Comments/Other: General: Alert, oriented, appears worried, but no acute distress Respiratory: Normal rate of respiration. No accessory muscle use, normal respiratory effort. Conversing normally Abdomen: Nondistended. Moderate tenderness in the right lower quadrant Extremities: Normal range of motion Neuro: Oriented x3. Normal movements labs: Psych: Appropriate mood and affect. Normal judgment and insight Conclusion/Plan - Problem List (1) Right sided abdominal pain Conclusion/Plan: -Concern for intermittent torsion. Patient appears more comfortable than I would expect for an acute torsion, although did receive ketoralac and hydromorphone recently. -stat ultrasound to assess for blood flow pending -Consider surgical management, but I would prefer gynecologic oncology be involved in case larger surgery is warranted. -Can also consider ultrasound drainage if possible, although unlikely we will be able to perform here. -Discussed gestational tropyblastic disease, and that gynecologic oncology referral is indicated and will likely need methotrexate. -Anticipate discharge with adequate pain control or transfer to facility with paleontological helper oncology. (2) Abdominal pain Qualifiers: Abdominal location: right lower quadrant Qualified Code(s): R10.31 - Right lower quadrant pain (3) Molar Conclusion/Plan: -Status post D&C 09/15/23 and 10/14/22. -CXR 10/14/23 negative for metastatic disease. Mildly rising HCG, but greatly decreased from pretreatment. -Will likely need methotrexate. Has referral to [facility] and have discussed case with Dr. Gonzales previously. (4) Ovarian cyst Conclusion/Plan: -Possible theca lutein cysts. Consider management as above. Qualifiers: Laterality: bilateral Qualified Code(s): N83.201 - Unspecified ovarian cyst, right side; N83.202 - Unspecified ovarian cyst, left side - Lab Results Lab results reviewed: Yes Fish Bones: 10/27/23 00:55 10/27/23 00:55 - Other Other Results/Comments: hC. 2699 on 10/24/2023. Peak of 156,000 on 09/16/2023. CT: Preliminary read of 5.3 x 4.0 cm cyst.
[2023-10-27] MEDS: SODIUM CHLORIDE FLUSH 0.9% 10 ML SYRINGE IVP SCH ×2 (05:31→07:15)
[2023-10-27] MEDS: KETOROLAC 30 MG/ML VIAL IVP SCH ×3 (07:14→19:05)
[2023-10-27] MEDS ORDERED: ACETAMINOPHEN 500 MG TABLET PO PRN (07:30)
--- NOTE | 2023-10-27 07:58 | CT Report ---
PROCEDURE: Abdomen/Pelvis W INDICATIONS: RLQ PAIN CONTRAST: 100 ML OMNI 300 TECHNIQUE: After the administration of intravenous contrast, a CT scan of the abdomen and pelvis was performed. Images were recorded and evaluated at appropriate window settings. Reformats: coronal and sagittal. F or radiation dose reduction, the following was used: automated exposure control, adjustment of mA and /or kV according to patient size. COMPARISON: CT of abdomen and pelvis, 10/25/2023. FINDINGS: Image quality: Excellent. Lung bases and heart: Unremarkable. Liver: No solid mass. Gallbladder and biliary tree: Normal gallbladder. No biliary dilation. Spleen: No splenomegaly. Pancreas: No pancreatic ductal dilation. Adrenals: No adrenal nodule. Kidneys and ureters: No hydronephrosis. No renal cystic lesion which requires follow up. No solid mas s. Bowel and peritoneum: No bowel distension. No pathologic free fluid. Lymph nodes: No central or retroperitoneal adenopathy. Vessels: No infrarenal aortic aneurysm. PELVIS Reproductive organs: There is a large cyst in the right adnexa, arising from the right ovary, measuri ng 4.3 x 5.3 cm previously 3.2 x 3.7 cm on 10/25/2023. Left ovary is unremarkable. No pathological ashley e fluid in pelvis. Note is made of prominent gonadal veins. Bladder: No abnormal wall thickening, accounting for underdistention. Pelvic lymph nodes: No pelvic adenopathy by size criteria. Bones: No aggressive osseous abnormality. Other: No significant ventral or inguinal hernia. IMPRESSION: 1. There is a 4.3 x 5.3 cm cyst in the right adnexa. It has slightly increased in size compared to th e last exam. Recommend pelvic ultrasound for further evaluation. 2. Prominent gonadal veins in pelvis. Recommend clinical correlation for pelvic congestion syndrome. 3. No pathological free fluid in pelvis. Findings are concordant with preliminary interpretation provided by [facility]. Reviewed by: Diana Solis MD on 10/27/2023 7:56 AM PST Approved by: Diana Solis MD on 10/27/2023 7:56 AM PST Station ID: [id number]
[2023-10-27] MEDS ORDERED: DOCUSATE SODIUM 100 MG CAPSULE PO SCH (09:00)
--- NOTE | 2023-10-27 10:24 | Ultrasound Report ---
PROCEDURE: Pelvic w/Transvag+Doppler Comp INDICATIONS: Right pelvic pain/cyst, possible torsion. History of recent D&C on 10/14/2023 for molar p regnancy. TECHNIQUE: Real-time scanning was performed of the pelvic organs, with image documentation. Additional endovagi nal scanning was necessary due to incomplete visualization of the adnexal and endometrial structures by transabdominal scanning. Doppler interrogation was performed of the ovaries bilaterally. COMPARISON: None. FINDINGS: Uterus: Uterus is anteverted and normal in size at 7.7 x 4.0 x 5.8 cm. The myometrium is heterogene ous. The endometrium measures 3 mm in combined thickness. Cystic appearance of the myometrium near the left fundal region. Ovaries: The right ovary measures 5.5 x 3.9 x 5.5 cm, with a calculated ovarian volume of 62 cc. Th e left ovary measures 3.6 x 1.9 x 3.0 cm, with a calculated ovarian volume of 10.7 cc. Appropriate b lood flow to the ovaries with Doppler interrogation. Less than 12 follicles can be seen in each ova ry. No adnexal masses are seen. There is a 3.5 x 3.4 x 3.7 cm cyst in the right ovary. Dominant foll icle measuring 1.5 cm noted on the left. Other: No pathologic free abdominal or pelvic fluid. IMPRESSION: No sonographic evidence for ovarian torsion. Nonspecific, heterogeneous, slightly cystic appearance of the myometrium near the left fundal region without abnormal vascularity or thickening. Recommend continued clinical and laboratory surveillance in this patient with history of recent D&C for molar . Reviewed by: Flavio Meyers MD on 10/27/2023 10:22 AM PST Approved by: Flavio Meyers MD on 10/27/2023 10:22 AM PST Station ID: [id number]
[2023-10-27] MEDS: HYDROcod/ACETAM 5/325 MG TABLET PO PRN ×2 (11:34→16:59)
--- NOTE | 2023-10-27 15:04 | PHARMACY PROGRESS NOTE ---
- Best Possible Medication History Admit Date and Time: 10/27/23 0504 Processed by: Pharmacy Medication History completed: Yes Patient Interview: Pt unable to participate Secondary Source(s): Pharmacy records, Insurance records As the person ultimately responsible for medication therapy, providers are able to order a medication from an existing home medication list in [facility] via the "Reconcile Routine" prior to Confirmation of that medication by computer support analyst. Such practice is discouraged except when the physician, in their clinical judgment, deems that a medical need exists for a medication without regard to previous use.
[2023-10-27] MEDS ORDERED: METHOTREXATE 50 MG/2 ML IM ONE (16:00)
[2023-10-27 20:01] VITALS: BP 111/64; O2SAT 98
--- NOTE | 2023-10-27 20:20 | Discharge Plan ---
Discharge Plan Problem Reviewed?: Yes Disposition: Home, Self Care Condition: Good Diet: Regular Activity Restrictions: No Restrictions Shower Restrictions: No Driving Restrictions: No Follow-Up Care: [facility] - [facility] (needs appt friday. orders placed. labs also on Friday.) No Smoking: If you smoke, Please STOP! Call for help.
--- NOTE | 2023-10-27 20:23 | DISCHARGE SUMMARY ---
Discharge Summary Admit Date: 10/27/23 Discharge Date: 10/27/23 Discharging Provider: Carrol Spear MD Code Status: Attempt Resuscitation Condition at Discharge: Good Discharge Disposition: Home, Self Care - DIAGNOSES Admission Diagnoses: right lower quadrant pain. Gestational trophoblastic disease. Discharge Diagnoses with Status of Each Condition: GTD continues. first treatment today with MTX. RLQ pain is improved with analgesics - HPI History of Present Illness: patient with known GTD. Has cysts on her ovaries and uterine pain because of this. working on getting her treatment. - HOSPITAL COURSE Hospital Course: Cyst on right a bit smaller. no signs of torsion. No other concerns with this. Needs methotrexate for GTD and this was arranged and given while she was in the hospital today. She received 90 mg of MTX = 50 mg/m2. Discussed care by phone with hose stripper oncologist. plan made for further care. - ALLERGIES Allergies/Adverse Reactions: Allergies Allergy/AdvReac Type Severity Reaction Status Date / Time No Known Drug Allergies Allergy Verified 10/26/23 23:40 - MEDICATIONS Home Medications: Ambulatory Orders Medication Instructions Recorded Confirmed Ondansetron Odt [Zofran Odt] 4 mg TL Q6H PRN #14 tablet 10/25/23 10/26/23 Oxycodone HCl/Acetaminophen 1 - 2 each PO Q6H PRN #14 tablet 10/25/23 10/26/23 [Percocet 5-325 mg Tablet] - PHYSICAL EXAM AT DISCHARGE General Appearance: positive: No acute distress Neck: positive: Nml inspection Respiratory: positive: No respiratory distress Abdomen: positive: Other (mildly tender right more than left. ) Skin: positive: Color nml Extremities: positive: Nml appearance Neurologic/Psychiatric: positive: Oriented x3 - LABS Result Diagrams: 10/27/23 00:55 10/27/23 00:55 - DIAGNOSTIC IMAGING Diagnostic Imaging Results: Final report reviewed - FOLLOW UP Follow Up: next friday in [facility] [place] for blood work and another MTX injection. Also hose stripper onc visit. they get a call from both clinics in the next few days. - TIME SPENT Time Spent in Discharge (Minutes): 60 (lots of care coordination required.)
== END 2023-10-27 20:05 | disposition home or self-care (01) ==
LOC: ED 23:00 → MS2 10-27 05:04
PROVIDERS: ADMIT Obstetrics & Gynecology; ATTEND Obstetrics & Gynecology
DX: O01.9 Hydatidiform mole, unspecified (principal); N83.201 Unspecified ovarian cyst, right side; N83.202 Unspecified ovarian cyst, left side
CPT/HCPCS: 36415; 74177; 76830; 76856; 80053; 83690; 84702; 85025; 93975; 96365; 96372; 96375; 96376; 99284; 99285; A9270; G0378; J0131; J1170; J9250; Q9967

== ENCOUNTER 2023-11-04 08:00 | Outpatient (CLI) | payer OTHER | END 2023-11-04 08:01 | disposition home or self-care (01) | LOC: LAB 08:00 | PROVIDERS: ATTEND Obstetrics & Gynecology | DX: O01.9 Hydatidiform mole, unspecified (principal) | CPT/HCPCS: 36415; 84439 ==

== ENCOUNTER 2023-11-04 18:56 | Emergency (ER) | payer OTHER ==
[2023-11-04] MEDS ORDERED: HYDROmorphone 1 MG/ML CARPUJECT IVP STA ×2 (19:28→21:04)
[2023-11-04] MEDS ORDERED: KETOROLAC 30 MG/ML VIAL IVP STA (19:30)
[2023-11-04 19:38] LABS: BASOPHILS % (AUTO) 0.1 %; EOSINOPHILS % (AUTO) 0.5 %; HCT - HEMATOCRIT 33.1 % (37.0-47.0); HGB - HEMOGLOBIN 10.7 g/dL (12.0-16.0); LYMPHOCYTES # (AUTO) 2.3 10^3/uL (1.5-3.5); LYMPHOCYTES % (AUTO) 28.2 %; MEAN CORPUSCULAR HEMOGLOBIN 27.6 pg (27.0-31.0); MEAN CORPUSCULAR HGB CONC 32.3 g/dL (32.0-36.0); MEAN CORPUSCULAR VOLUME 85.5 fL (81.0-99.0); MEAN PLATELET VOLUME 8.6 fL (7.9-10.8); MONOCYTES # (AUTO) 0.6 10^3/uL (0.0-1.0); MONOCYTES % (AUTO) 6.7 %; NEUTROPHILS # (AUTO) 5.3 10^3/uL (1.5-6.6); PLT - PLATELET COUNT 283 10^3/uL (130-450); RED BLOOD COUNT 3.87 10^6/uL (4.20-5.40); RED CELL DISTRIBUTION WIDTH 13.5 % (12.0-15.0); WHITE BLOOD COUNT 8.3 x10^3/uL (4.8-10.8)
--- NOTE | 2023-11-04 20:03 | ED Physician Documentation ---
History of Present Illness - Stated complaint Stated Complaint: LT SIDE PELVIC PX - Chief complaint Chief Complaint: Abd Pain - History obtained from History obtained from: Patient - History of Present Illness Timing: Today Pain level max: 8 Pain level now: 8 - Additonal information Additional information: Patient is a 32-year-old who presents to the emergency department with left- sided pelvic pain. She is reportedly undergoing treatment for a molar . She has oxycodone at home for pain, but pain was not controlled today. She contacted the on-call case resource manager who recommended that she come to the emergency department to rule out ovarian torsion. No nausea or vomiting. No fevers. No chills. Worse with movement, palpation. Nothing makes it better. No vaginal bleeding or discharge. The patient has had 2 D&Cs for complete molar , the first on 09/16/2023, second on 10/14/2023. Review of Systems Constitutional: denies: Fever, Chills GI: denies: Vomiting, Diarrhea Skin: denies: Rash Musculoskeletal: denies: Neck pain, Back pain Neurologic: denies: Headache PD PAST MEDICAL HISTORY - Past Medical History Past Medical History: Yes Cardiovascular: None Respiratory: None Neuro: None Endocrine/Autoimmune: None GI: None STERILE PROCESS TECH: Ovarian cysts, Other : None HEENT: None Psych: None Musculoskeletal: None Derm: None - Past Surgical History Past Surgical History: Yes /STERILE PROCESS TECH: section, 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 - Present Medications Home Medications: Ambulatory Orders Medication Instructions Recorded Confirmed Ondansetron Odt [Zofran Odt] 4 mg TL Q6H PRN #14 tablet 10/25/23 11/04/23 Oxycodone HCl/Acetaminophen 1 - 2 each PO Q6H PRN #14 tablet 10/25/23 11/04/23 [Percocet 5-325 mg Tablet] - Allergies Allergies/Adverse Reactions: Allergies Allergy/AdvReac Type Severity Reaction Status Date / Time No Known Drug Allergies Allergy Verified 11/04/23 19:01 - Social History Does the pt smoke?: No Smoking Status: Never smoker Does the pt drink ETOH?: No Does the pt have substance abuse?: No - Immunizations Immunizations are current?: Yes - POLST Patient has POLST: No POLST Status: Full Code PD ED PE NORMAL - Vitals Vital signs reviewed: Yes - General General: Alert and oriented X 3, No acute distress - HEENT HEENT: PERRL, Moist mucous membranes - Neck Neck: Supple, no meningeal sign - Cardiac Cardiac: RRR, Strong equal pulses - Respiratory Respiratory: No respiratory distress, Clear bilaterally - Abdomen Abdomen: Soft, Non tender, Non distended - Derm Derm: Warm and dry, No rash - Neuro Neuro: Alert and oriented X 3 - Psych Psych: Normal mood, Normal affect Results - Vitals Vitals: Vital Signs - 24 hr 11/04/23 11/04/23 19:03 21:06 Temperature 36.4 C L Heart Rate 83 78 Respiratory 18 16 Rate Blood Pressure 129/72 107/60 O2 Saturation 100 96 Oxygen O2 Source Room air - Labs Labs: Laboratory Tests 11/04/23 11/04/23 19:35 19:35 WBC 8.3 RBC 3.87 L Hgb 10.7 L Hct 33.1 L MCV 85.5 MCH 27.6 MCHC 32.3 RDW 13.5 Plt Count 283 MPV 8.6 Neut # (Auto) 5.3 Lymph # (Auto) 2.3 [place] # (Auto) 0.6 Eos # (Auto) 0.0 Baso # (Auto) 0.0 Absolute Nucleated RBC 0.00 Nucleated RBC % 0.0 Sodium 134 L Potassium 3.3 L Chloride 103 Carbon Dioxide 24 Anion Gap 7.0 BUN 10 Creatinine 0.7 Estimated GFR (MDRD) 97 Glucose 103 Calcium 9.0 Total Bilirubin 0.4 AST 16 ALT 18 Alkaline Phosphatase 91 Total Protein 8.1 Albumin 4.4 Globulin 3.7 Albumin/Globulin Ratio 1.2 Lipase 34 TSH 5.71 H Beta HCG, Quant 1595.5 - Rads (name of study) pelvic US Relevant Findings:: Final report received, See rad report PD Medical Decision Making - ED course Complexity details: reviewed results, re-evaluated patient, considered differential, d/w patient, d/w surgical product sales consultant ED course: Pelvic ultrasound does reveal an ovarian cyst, this is known. There is no evidence of torsion. Dr. Anne, gynecology on-call, came and evaluated the patient in the emergency department. She recommends giving her a dose of methotrexate that she was supposed to have yesterday. This was given in the emergency department. Pain well-controlled after a dose of Toradol and Dilaudid IV. Dr. Dayana recommends following up as an outpatient as scheduled. Patient is well-appearing, nontoxic. Afebrile. No significant lab abnormalities. hCG is decreased. Patient and family counseled regarding signs and symptoms for which I believe and urgent re-evaluation would be necessary. Patient with good understanding of and agreement to plan and is comfortable going home at this time This document was made in part using voice recognition software. While efforts are made to proofread this document, sound alike and grammatical errors may occur. Departure - Departure Disposition: Home, Self Care Clinical Impression: Gestational trophoblastic disease Ovarian cyst Qualifiers: Laterality: left Qualified Code(s): N83.202 - Unspecified ovarian cyst, left side Condition: Good Instructions: ED Pelvic Pain [facility] Follow-Up: Carrol Spear MD [Provider Admit Priv/Credential] - Within 3 Days Comments: You are given you are scheduled dose of methotrexate tonight. You were given Dilaudid for pain. There is no evidence of torsion on your ultrasound. Please follow-up with gynecology as scheduled. Please return if you worsen. Forms: PCP List
[2023-11-04 20:11] LABS: ALBUMIN 4.4 g/dL (3.2-5.5); ALBUMIN/GLOBULIN RATIO 1.2 (1.0-2.2); BILIRUBIN,TOTAL 0.4 mg/dL (0.2-1.0); CREATININE 0.7 mg/dL (0.6-1.3); POTASSIUM 3.3 mmol/L (3.5-4.5); TOTAL PROTEIN 8.1 g/dL (6.4-8.9)
[2023-11-04 20:43] LABS: THYROID STIMULATING HORMONE 5.71 uIU/mL (0.34-5.60)
[2023-11-04] MEDS ORDERED: METHOTREXATE 50 MG/2 ML IM STA (21:13)
[2023-11-04 21:55] VITALS: BP 107/60; O2SAT 96
[2023-11-04] MEDS ORDERED: ONDANSETRON 4 MG/2 ML VIAL IVP STA (21:57)
--- NOTE | 2023-11-04 22:17 | Ultrasound Report ---
PROCEDURE: Pelvic w/Doppler Complete INDICATIONS: pelvic pain, molar preg TECHNIQUE: Real-time scanning was performed of the pelvic organs, with image documentation. Additional endovagi nal scanning was necessary due to incomplete visualization of the adnexal and endometrial structures by transabdominal scanning. COMPARISON: Pelvic ultrasound, 10/27/2023. CT abdomen and pelvis, 10/27/2023 FINDINGS: Uterus: Uterus is anteverted and normal in size at 11.2 x 4.0 x 6.4 cm. The myometrium is heterogen eous. The endometrium measures 5.6 mm in combined thickness. Ovaries: The right ovary measures 5.7 x 3.9 x 5.6 cm, with a calculated ovarian volume of 64.9 cc. There is a complex cyst with septation in right ovary measuring 5.2 x 3.0 x 4.2 cm. The left ovary me asures 3.1 x 2.3 x 3.5 cm, with a calculated ovarian volume of 12.7 cc. The ovaries have a normal so nographic appearance. Less than 12 follicles can be seen in each ovary. No adnexal masses are seen. No cystic lesions measuring greater than 3 cm. On Doppler ultrasound, there is vascularity to both o varies. Other: No pathologic free abdominal or pelvic fluid. IMPRESSION: 1. There is a complex cyst in right ovary measuring 5.2 x 3.0 x 4.2 cm. Recommend a short-term follow -up ultrasound in 6 weeks. 2. Uterus is slightly enlarged. The endometrium is normal in thickness. 3. Heterogeneous myometrium. This finding could be associated with adenomyosis. Reviewed by: Diana Solis MD on 11/04/2023 10:15 PM PST Approved by: Diana Solis MD on 11/04/2023 10:15 PM PST Station ID: [id number]
== END 2023-11-04 22:45 | disposition home or self-care (01) ==
LOC: ED 18:56
DX: O01.9 Hydatidiform mole, unspecified (principal); N83.202 Unspecified ovarian cyst, left side; Z3A.00 Weeks of gestation of pregnancy not specified
CPT/HCPCS: 36415; 76856; 80053; 83690; 84439; 84443; 84702; 85025; 93975; 96372; 96374; 96375; 99284; 99285; J1170; J9250

== ENCOUNTER 2023-11-11 08:27 | Outpatient (CLI) | payer OTHER ==
[2023-11-11 08:38] LABS: BASOPHILS % (AUTO) 0.3 %; EOSINOPHILS # (AUTO) 0.1 10^3/uL (0.0-0.7); HCT - HEMATOCRIT 33.1 % (37.0-47.0); HGB - HEMOGLOBIN 10.8 g/dL (12.0-16.0); LYMPHOCYTES # (AUTO) 1.9 10^3/uL (1.5-3.5); MEAN CORPUSCULAR HEMOGLOBIN 28.2 pg (27.0-31.0); MEAN CORPUSCULAR HGB CONC 32.6 g/dL (32.0-36.0); MEAN CORPUSCULAR VOLUME 86.4 fL (81.0-99.0); MEAN PLATELET VOLUME 8.2 fL (7.9-10.8); MONOCYTES # (AUTO) 0.4 10^3/uL (0.0-1.0); MONOCYTES % (AUTO) 8.8 %; NEUTROPHILS # (AUTO) 1.6 10^3/uL (1.5-6.6); NEUTROPHILS % (AUTO) 40.6 %; PLT - PLATELET COUNT 217 10^3/uL (130-450); RED BLOOD COUNT 3.83 10^6/uL (4.20-5.40); RED CELL DISTRIBUTION WIDTH 13.1 % (12.0-15.0)
== END 2023-11-11 08:28 | disposition home or self-care (01) ==
LOC: LAB 08:27
PROVIDERS: ATTEND Obstetrics & Gynecology
DX: O01.9 Hydatidiform mole, unspecified (principal)
CPT/HCPCS: 36415; 84439; 84702; 85025

== ENCOUNTER 2023-11-17 12:52 | Outpatient (CLI) | payer OTHER | END 2023-11-17 12:53 | disposition home or self-care (01) | LOC: LAB.N 12:52 | PROVIDERS: ATTEND Obstetrics & Gynecology | DX: O02.0 Blighted ovum and nonhydatidiform mole (principal) | CPT/HCPCS: 36415; 84702 ==

== ENCOUNTER 2023-12-01 12:46 | Outpatient (CLI) | payer OTHER | END 2023-12-01 12:47 | disposition home or self-care (01) | LOC: LAB.N 12:46 | PROVIDERS: ATTEND Obstetrics & Gynecology | DX: Z53.9 Procedure and treatment not carried out, unspecified reason (principal) ==

== ENCOUNTER 2023-12-22 10:33 | Outpatient (CLI) | payer OTHER | END 2023-12-22 10:34 | disposition home or self-care (01) | LOC: LAB.N 10:33 | PROVIDERS: ATTEND Obstetrics & Gynecology | DX: O01.9 Hydatidiform mole, unspecified (principal) | CPT/HCPCS: 36415; 84702 ==

== ENCOUNTER 2023-12-27 07:23 | Outpatient (CLI) | payer OTHER ==
--- NOTE | 2023-12-28 09:59 | Ultrasound Report ---
PROCEDURE: Pelvic w/Transvaginal INDICATIONS: OVARIAN CYST history of previous molar and treatment for gestational trophobl astic disease. TECHNIQUE: Real-time scanning was performed of the pelvic organs, with image documentation. Additional endovagi nal scanning was necessary due to incomplete visualization of the adnexal and endometrial structures by transabdominal scanning. COMPARISON: 10/27/2023, 11/04/2023 FINDINGS: Uterus: Uterus is anteverted and normal in size at 9.9 x 4.5 x 5.0 cm. The myometrium is homogeneou s. The endometrium measures 11 mm in combined thickness. There is a cystic structure in the anterio r lower uterine segment which measures 2.3 x 1.9 x 2.0 cm. It was not present on the 2 most recent pr ior studies.. Ovaries: The right ovary measures 6.7 x 4.3 x 4.0 cm, with a calculated ovarian volume of 59.7 cc. The left ovary measures 4.1 x 2.2 x 2.2 cm, with a calculated ovarian volume of 10.1 cc. The ovaries have a normal sonographic appearance. Less than 12 follicles can be seen in each ovary. No adnexal masses are seen. The right ovary contains 2 cysts. One cyst measures 3.4 x 2.4 x 2.4 cm, and the oth er cyst measures 3.4 x 3.1 x 2.7 cm. Other: No pathologic free abdominal or pelvic fluid. IMPRESSION: 1. In this patient with a prior history of molar , there is a cystic focus in the anterior l ower uterine segment. It measures 2.3 x 1.9 x 2.0 cm. This has developed since the 2 most recent stud ies. Comment: Recommend correlation with beta hCG as well as follow-up pelvic ultrasound in 1-2 months. Reviewed by: Anibal Callahan MD on 12/28/2023 9:58 AM PDT Approved by: Anibal Callahan MD on 12/28/2023 9:58 AM PDT Station ID: [id number]
== END 2023-12-27 07:24 | disposition home or self-care (01) ==
LOC: DI 07:23
PROVIDERS: ATTEND Obstetrics & Gynecology
DX: Z87.59 Personal history of other complications of pregnancy, childbirth and the puerperium (principal); R93.89 Abnormal findings on diagnostic imaging of other specified body structures

== ENCOUNTER 2024-01-04 00:07 | Emergency (ER) | payer OTHER ==
[2024-01-04 00:51] LABS: BILIRUBIN,URINE NEGATIVE (NEGATIVE); GLUCOSE, URINE (UA) NEGATIVE (NEGATIVE); KETONES,URINE (UA) NEGATIVE (NEGATIVE); LEUKOCYTE ESTERASE, URINE NEGATIVE (NEGATIVE); NITRITE,URINE NEGATIVE (NEGATIVE); OCCULT BLOOD,URINE NEGATIVE (NEGATIVE); PROTEIN,URINE NEGATIVE (NEGATIVE); UROBILINOGEN,URINE 0.2 (NORMAL) E.U./dL (NORMAL)
[2024-01-04 00:54] LABS: BASOPHILS % (AUTO) 0.1 %; EOSINOPHILS # (AUTO) 0.1 10^3/uL (0.0-0.7); EOSINOPHILS % (AUTO) 1.3 %; HCT - HEMATOCRIT 34.8 % (37.0-47.0); HGB - HEMOGLOBIN 11.4 g/dL (12.0-16.0); LYMPHOCYTES # (AUTO) 3.1 10^3/uL (1.5-3.5); LYMPHOCYTES % (AUTO) 40.3 %; MEAN CORPUSCULAR HEMOGLOBIN 28.1 pg (27.0-31.0); MEAN CORPUSCULAR HGB CONC 32.8 g/dL (32.0-36.0); MEAN CORPUSCULAR VOLUME 85.9 fL (81.0-99.0); MONOCYTES # (AUTO) 0.9 10^3/uL (0.0-1.0); NEUTROPHILS # (AUTO) 3.6 10^3/uL (1.5-6.6); NEUTROPHILS % (AUTO) 46.7 %; PLT - PLATELET COUNT 284 10^3/uL (130-450); RED BLOOD COUNT 4.05 10^6/uL (4.20-5.40); RED CELL DISTRIBUTION WIDTH 15.1 % (12.0-15.0); WHITE BLOOD COUNT 7.7 x10^3/uL (4.8-10.8)
--- NOTE | 2024-01-04 00:57 | ED Physician Documentation ---
PD HPI FEMALE - Stated complaint Stated Complaint: CRAMPS,PX, - Chief complaint Chief Complaint: Abd Pain - History obtained from History obtained from: Patient - Additional information Additional information: HPI from patient. Patient complains of pelvic pain, bilateral lower pelvis but more pronounced on the right side. The pain radiates around both sides to the bilateral low back. This pain started yesterday without inciting event. The pain is exacerbated with palpation, movement. She has had nausea but no vomiting. Patient has had several ED visits over the past few months related to molar for which she had undergone surgery in early September and again in early October. She has received several rounds of methotrexate but patient says she has completed the required doses of methotrexate. One of her chief concerns is that the pelvic pain that she has since yesterday has some similarities in characteristics and location to the pain she was having with these previous problems regarding the molar . Review of Systems Constitutional: denies: Fever, Chills, Sweats GI: reports: Nausea. 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, Other : None HEENT: None Psych: None Musculoskeletal: None Derm: None Other Past Medical History: Molar - Past Surgical History Past Surgical History: Yes /QA ANALYST: section, 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 - Present Medications Home Medications: Ambulatory Orders Medication Instructions Recorded Confirmed Ondansetron Odt [Zofran Odt] 4 mg TL Q6H PRN #14 tablet 10/25/23 01/04/24 Oxycodone HCl/Acetaminophen 1 - 2 each PO Q6H PRN #14 tablet 10/25/23 01/04/24 [Percocet 5-325 mg Tablet] Methotrexate Sodium/Pf IM 01/04/24 [Methotrexate 25 mg/ml Vial] Ondansetron Odt [Zofran Odt] 4 mg TL Q6H PRN #14 tablet 01/04/24 oxyCODONE [Roxicodone] 5 - 10 mg PO Q4-6H PRN #14 tablet 01/04/24 - Allergies Allergies/Adverse Reactions: Allergies Allergy/AdvReac Type Severity Reaction Status Date / Time No Known Drug Allergies Allergy Verified 01/04/24 00:29 - Social History Does the pt smoke?: No Smoking Status: Never smoker Does the pt drink ETOH?: No Does the pt have substance abuse?: No - Immunizations Immunizations are current?: Yes - POLST Patient has POLST: No POLST Status: Full Code PD ED PE NORMAL - Vitals Vital signs reviewed: Yes - General General: Alert and oriented X 3, No acute distress, Well developed/nourished - Cardiac Cardiac: RRR, No murmur - Respiratory Respiratory: No respiratory distress, Clear bilaterally - Abdomen Abdomen: Soft, Non tender, Non distended - Female Female : Other (limited to anterior low pelvic palpation: TTP across lower anterior pelvis (R>L) without guarding or rebound) - Back Back: No CVA TTP - Derm Derm: Normal color, Warm and dry Results - Vitals Vitals: Oxygen O2 Source Room air - Labs Labs: Laboratory Tests 01/04/24 01/04/24 01/04/24 00:35 00:35 00:35 WBC 7.7 RBC 4.05 L Hgb 11.4 L Hct 34.8 L MCV 85.9 MCH 28.1 MCHC 32.8 RDW 15.1 H Plt Count 284 MPV 9.0 Neut # (Auto) 3.6 Lymph # (Auto) 3.1 [place] # (Auto) 0.9 Eos # (Auto) 0.1 Baso # (Auto) 0.0 Absolute Nucleated RBC 0.00 Nucleated RBC % 0.0 Sodium 135 Potassium 3.7 Chloride 103 Carbon Dioxide 27 Anion Gap 5.0 L BUN 13 Creatinine 0.9 Estimated GFR (MDRD) 72 L Glucose 95 Calcium 9.4 Total Bilirubin 0.3 AST 15 ALT 14 Alkaline Phosphatase 89 Total Protein 7.8 Albumin 4.4 Globulin 3.4 Albumin/Globulin Ratio 1.3 Lipase 28 Beta HCG, Quant < 0.6 Urine Color YELLOW Urine Clarity CLEAR Urine pH 6.0 Ur Specific [place] 1.025 Urine Protein NEGATIVE Urine Glucose (UA) NEGATIVE Urine Ketones NEGATIVE Urine Occult Blood NEGATIVE Urine Nitrite NEGATIVE Urine Bilirubin NEGATIVE Urine Urobilinogen 0.2 (NORMAL) Ur Leukocyte Esterase NEGATIVE Ur Microscopic Review NOT INDICATED Urine Culture Comments NOT INDICATED PD Medical Decision Making - ED course Complexity details: reviewed results, re-evaluated patient, considered differential, d/w patient ED course: No concerning findings of tonight's blood test. Normal white blood cell count. Hemoglobin is 11.4, slightly below normal range. No concerning abnormalities on ER abdominal panel with normal LFTs. Normal UA. Beta-hCG is < 0.6. She also has had recent outpatient hCG levels earlier this month which were similarly low (0.6, 0.9). Patient also had outpatient ultrasound 12/28/2023; I reviewed the radiologist interpretation which notes "there is a cystic focus in the anterior lower uterine segment. It measures 2.3 x 1.9 x 2.0 cm." There is also note of right ovarian cysts x 2. Patient's symptoms are eventually controlled after p.o. Tylenol, IV Toradol (30 mg), Zofran 4 mg IV x 2 doses, Dilaudid 1 mg IV x 3 doses. I discussed this case with Dr. Spear (on-call DECK HAND for [facility]). Patient is known to her practice and Dr. Spear has been significantly involved with this patient's care in the outpatient setting, as well. Per my discussion with Dr. Spear, she says that the patient is safe and appropriate for discharge (provided symptoms can be adequately controlled) given the unremarkable blood tests and, particularly, the undetectable hCG level. We also discussed her recent outpatient ultrasound. Dr. 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 The cause of patient's symptoms is not apparent at this time. I reviewed the results with the patient and her spouse who is in the ED at patient's bedside. I also discussed with them the conversation I had with Dr. Spear as well as follow-up recommendations. I have electronically submitted prescriptions for oxycodone and ondansetron to patient's pharmacy of choice. Return precautions were discussed. Departure - Departure Disposition: 01 Home, Self Care Clinical Impression: Pelvic pain in female Condition: Good Instructions: ED Pelvic Pain [facility] Follow-Up: Carrol Spear MD [Provider Admit Priv/Credential] - Prescriptions: oxyCODONE [Roxicodone] 5 - 10 mg PO Q4-6H PRN #14 tablet PRN Reason: Pain >8 Ondansetron Odt [Zofran Odt] 4 mg TL Q6H PRN #14 tablet PRN Reason: Nausea / Vomiting Comments: There were no concerning or diagnostic findings on tonesthela's blood tests. The hCG level is undetectably low at this point (less than 0.6). The cause of your pelvic pain is not apparent at this time. I discussed these test results with Dr. Cabral. Contact Dr. Spear's office tomorrow morning when they are next open to arrange for the next available appointment for follow-up/reevaluation. I have electronically submitted prescriptions for oxycodone (narcotic/opiate pain medication) and ondansetron (antinausea medication) to the [facility] in [place]. I am prescribing a short course of narcotic pain medication for you. These are potentially dangerous and addictive medications that should be used carefully. These medications may constipate you. Take an sopx-cev-amqgrrk stool softener (docusate) twice daily with plenty of water while taking these medications. If you go 24 hours without a bowel movement, take dvib-hmz-inqamxp miralax, per package instructions. Do not drink or drive while taking these medications. If you received narcotic or sedating medications while in the emergency department, do not drive for 24 hours. Store this medication in a safe, secure place and out of reach of children. It is a violation of federal law to give or sell this medication to another person or to use in a manner other than prescribed. The ED will not refill narcotic prescriptions, including prescriptions lost or stolen. To dispose of unwanted medications: 1. [facility] at [address] in [place] has a medication drop box. They accept prescription medications (in pill form) Friday through Friday 9:00 a.m. to 5:00 p.m. 2. The [facility] [place] [employer] accepts prescription medications (in pill form only) for disposal year round. Call for more information. 3. Contact the [facility] for the next [facility] sponsored prescription drug collection event. , [phone], or [phone]; Forms: PCP List Discharge Date/Time: 01/04/24 05:20
[2024-01-04 01:03] LABS: CLARITY,URINE CLEAR (CLEAR)
[2024-01-04 01:15] LABS: ALBUMIN 4.4 g/dL (3.2-5.5); ALBUMIN/GLOBULIN RATIO 1.3 (1.0-2.2); ALKALINE PHOSPHATASE 89 IU/L (42-121); ALT ALANINE AMINOTRANSFERASE 14 IU/L (10-60); AST ASPARTATE AMINOTRANSFERASE 15 IU/L (10-42); BILIRUBIN,TOTAL 0.3 mg/dL (0.2-1.0); BUN - BLOOD UREA NITROGEN 13 mg/dL (6-20); CALCIUM 9.4 mg/dL (8.5-10.3); CARBON DIOXIDE - CO2 27 mmol/L (21-32); CHLORIDE 103 mmol/L (101-111); CREATININE 0.9 mg/dL (0.6-1.3); GFR - MDRD 72 (>89); GLUCOSE 95 mg/dL (74-104); LIPASE 28 U/L (11-82); POTASSIUM 3.7 mmol/L (3.5-4.5); SODIUM 135 mmol/L (135-145); TOTAL PROTEIN 7.8 g/dL (6.4-8.9)
[2024-01-04] MEDS: HYDROmorphone 1 MG/ML CARPUJECT IVP STA ×3 (01:43→05:11)
[2024-01-04] MEDS: ONDANSETRON 4 MG/2 ML VIAL IVP STA ×2 (01:43→04:10)
[2024-01-04] MEDS: ACETAMINOPHEN 325 MG TABLET PO STA (03:38)
[2024-01-04] MEDS: KETOROLAC 30 MG/ML VIAL IVP STA (04:10)
[2024-01-04 04:46] VITALS: BP 115/96; O2SAT 98
== END 2024-01-04 05:20 | disposition home or self-care (01) ==
LOC: ED 00:07
DX: R10.2 Pelvic and perineal pain (principal); M54.50 Low back pain, unspecified; R11.0 Nausea
CPT/HCPCS: 36415; 80053; 81003; 83690; 84702; 85025; 96374; 96375; 96376; 99283; 99284; A9270; J1170; 81001; 81025; 87086

== ENCOUNTER 2024-01-28 15:58 | Emergency (ER) | payer OTHER ==
[2024-01-28 16:19] VITALS: O2SAT 100
[2024-01-28 16:31] LABS: BASOPHILS % (AUTO) 0.1 %; EOSINOPHILS # (AUTO) 0.1 10^3/uL (0.0-0.7); EOSINOPHILS % (AUTO) 0.9 %; HCT - HEMATOCRIT 33.9 % (37.0-47.0); HGB - HEMOGLOBIN 11.2 g/dL (12.0-16.0); LYMPHOCYTES # (AUTO) 2.6 10^3/uL (1.5-3.5); LYMPHOCYTES % (AUTO) 31.7 %; MEAN CORPUSCULAR HEMOGLOBIN 28.7 pg (27.0-31.0); MEAN CORPUSCULAR VOLUME 86.9 fL (81.0-99.0); MONOCYTES # (AUTO) 0.8 10^3/uL (0.0-1.0); MONOCYTES % (AUTO) 10.4 %; NEUTROPHILS # (AUTO) 4.6 10^3/uL (1.5-6.6); NEUTROPHILS % (AUTO) 56.7 %; PLT - PLATELET COUNT 285 10^3/uL (130-450); RED CELL DISTRIBUTION WIDTH 14.1 % (12.0-15.0); WHITE BLOOD COUNT 8.1 x10^3/uL (4.8-10.8)
[2024-01-28 16:34] LABS: BILIRUBIN,URINE NEGATIVE (NEGATIVE); GLUCOSE, URINE (UA) NEGATIVE (NEGATIVE); KETONES,URINE (UA) TRACE mg/dL (NEGATIVE); LEUKOCYTE ESTERASE, URINE NEGATIVE (NEGATIVE); NITRITE,URINE NEGATIVE (NEGATIVE); OCCULT BLOOD,URINE NEGATIVE (NEGATIVE); PH,URINE 6.5 PH (5.0-7.5); PROTEIN,URINE NEGATIVE (NEGATIVE); UROBILINOGEN,URINE 2 E.U./dL (NORMAL)
[2024-01-28 16:37] LABS: CLARITY,URINE CLEAR (CLEAR); HCG UR QUAL NEGATIVE
--- NOTE | 2024-01-28 16:38 | ED Physician Documentation ---
PD HPI ABD PAIN - Stated complaint Stated Complaint: R SIDE ABD PX - Chief complaint Chief Complaint: Abd Pain - Additional information Additional information: This is a 33-year-old female who presents with right lower quadrant pain. The patient has been followed for the last several months After having a molar with D&C in September, and she has been seen several times since then for ongoing right lower quadrant abdominal pain. She had previously was found to have ovarian cyst. She has been followed outpatient with [facility] and her hCG was trended to 0. She was taken off oxycodone which she was on for quite some time and encouraged to use ibuprofen and Tylenol only. She was doing okay up until today when she had a increase in her right lower quadrant pain. She feels mild pressure when she urinates but no urgency or frequency, no flank pain. She has not a fever or chills, no nausea vomiting, no diarrhea or constipation. She had a normal bowel movement today. She states she did previously have some issues with constipation and she was placed on fiber supplements by her [facility]ING [facility]TERN PREPARER which had been doing well. She has taken ibuprofen today without any relief in her pain. Review of Systems Constitutional: reports: Reviewed and negative Eyes: reports: Reviewed and negative Ears: reports: Reviewed and negative Nose: reports: Reviewed and negative Throat: reports: Reviewed and negative Cardiac: reports: Reviewed and negative Respiratory: reports: Reviewed and negative GI: reports: Abdominal Pain. denies: Abdominal Swelling, Nausea, Vomiting, Constipation, Diarrhea, Hematemesis, Bloody / black stool : reports: Dysuria. 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, Other : None HEENT: None Psych: None Musculoskeletal: None Derm: None - Past Surgical History 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 Surgical 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, 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 - Present Medications Home Medications: Ambulatory Orders Medication Instructions Recorded Confirmed Ibuprofen [Motrin] 1 tablet PO Q8H PRN #30 tablet 01/28/24 Ketorolac [Toradol] 10 mg PO Q6H PRN 01/28/24 01/28/24 oxyCODONE [Roxicodone] 5 mg PO BID PRN #8 tablet 01/28/24 - Allergies Allergies/Adverse Reactions: Allergies Allergy/AdvReac Type Severity Reaction Status Date / Time No Known Drug Allergies Allergy Verified 01/28/24 16:15 - Social History Does the pt smoke?: No Smoking Status: Never smoker Does the pt drink ETOH?: No Does the pt have substance abuse?: No - Immunizations Immunizations are current?: Yes - POLST Patient has POLST: No POLST Status: Full Code PD ED PE NORMAL - Vitals Vital signs reviewed: Yes - General General: Alert and oriented X 3, No acute distress, Well developed/nourished - HEENT HEENT: Atraumatic, Moist mucous membranes - Cardiac Cardiac: RRR, No murmur, No gallop, No rub - Respiratory Respiratory: No respiratory distress, Clear bilaterally - Abdomen Abdomen: Normal bowel sounds, Soft, Non distended, Other (Tenderness in the right lower quadrant, no other areas of tenderness.) - Back Back: No CVA TTP - Derm Derm: Normal color, Warm and dry, No rash - Extremities Extremities: No deformity, No tenderness to palpate, Normal ROM s pain, No edema, No calf tenderness / cord - Neuro Neuro: Alert and oriented X 3 Eye Opening: Spontaneous Motor: Obeys Commands Verbal: Oriented GCS Score: 15 Results - Vitals Vitals: Vital Signs - 24 hr 01/28/24 01/28/24 16:08 19:17 Temperature 36.1 C L Heart Rate 88 80 Respiratory 16 15 Rate Blood Pressure 113/69 99/61 O2 Saturation 100 100 Oxygen O2 Source Room air - Labs Labs: Laboratory Tests 01/28/24 01/28/24 01/28/24 16:24 16:26 16:26 WBC 8.1 RBC 3.90 L Hgb 11.2 L Hct 33.9 L MCV 86.9 MCH 28.7 MCHC 33.0 RDW 14.1 Plt Count 285 MPV 9.0 Neut # (Auto) 4.6 Lymph # (Auto) 2.6 [place] # (Auto) 0.8 Eos # (Auto) 0.1 Baso # (Auto) 0.0 Absolute Nucleated RBC 0.00 Nucleated RBC % 0.0 Sodium 137 Potassium 3.6 Chloride 106 Carbon Dioxide 26 Anion Gap 5.0 L BUN 14 Creatinine 0.7 Estimated GFR (MDRD) 96 Glucose 69 L Calcium 9.3 Total Bilirubin 0.6 AST 27 ALT 24 Alkaline Phosphatase 99 Total Protein 7.4 Albumin 4.2 Globulin 3.2 Albumin/Globulin Ratio 1.3 Lipase 39 Beta HCG, Quant < 0.6 Urine Color YELLOW Urine Clarity CLEAR Urine pH 6.5 Ur Specific [place] 1.020 Urine Protein NEGATIVE Urine Glucose (UA) NEGATIVE Urine Ketones TRACE Urine Occult Blood NEGATIVE Urine Nitrite NEGATIVE Urine Bilirubin NEGATIVE Urine Urobilinogen 2 H Ur Leukocyte Esterase NEGATIVE Ur Microscopic Review NOT INDICATED Urine Culture Comments NOT INDICATED Urine HCG, Qual NEGATIVE - Rads (name of study) No standard instances Relevant Findings:: Prelim report reviewed, Final report received PD Medical Decision Making - ED course Complexity details: reviewed old records, reviewed results, re-evaluated patient, considered differential, d/w patient, d/w family ED course: 33-year-old female presented with right lower quadrant pain as described in HPI. She has a history of molar requiring D&C in September as well as ovarian cyst, followed outpatient by [facility]. Differentials considered today included ovarian cyst, ovarian torsion, UTI, ureteral stone, appendicitis. We obtained labs which are reassuring, CBC and CMP are stable, her hCG serum is negative, urinalysis does not show signs of infection. We started with Toradol for pain control, Toradol IM without any relief therefore after discussion with patient and her , gave 1 mg of IM Dilaudid. She had some relief but not sufficiently so and the patient was ultimately given a second dose of IM Dilaudid with modest improvement. We did obtain an ultrasound which shows bilateral ovarian cysts, right cysts larger than the left, and no torsion. I have lower suspicion for appendicitis that she has no other systemic symptoms, no fever, no nausea or vomiting, is tolerating po, and her labs are reassuring. I think her pain is likely due to the cyst, and I recommend supportive measures including pain control and follow-up with CL[facility] PATTERN PREPARER. Patient and understand plan to avoid opiates if possible however patient continues to have pain, she was therefore given for tablet Percocet take-home pack and I will discharge her with 8 tablets of oxycodone to use only as needed if ibuprofen and Tylenol are insufficient. She and advised to return if she develops fever, vomiting, Inability to tolerate p.o., or if pain is not well-controlled by oral medication at home. I did recommend ibuprofen 803 times a day with Tylenol as needed. They were given 8 tablets of oxycodone to use only if necessary. Departure - Departure Disposition: Home, Self Care Clinical Impression: Ovarian cyst Qualifiers: Laterality: right Qualified Code(s): N83.201 - Unspecified ovarian cyst, right side Abdominal pain Qualifiers: Abdominal location: right lower quadrant Qualified Code(s): R10.31 - Right lower quadrant pain Condition: Good Instructions: ED Cyst Ovarian Prescriptions: Ibuprofen [Motrin] 1 tablet PO Q8H PRN #30 tablet PRN Reason: PAIN &/OR FEVER oxyCODONE [Roxicodone] 5 mg PO BID PRN #8 tablet PRN Reason: Pain >8 Comments: Please continue follow-up with your OB/build engineer. You have recurrent cyst on the right ovary that are likely causing her pain. These often times change in size throughout a cycle and the pain often will subside on its own. They can be quite painful in the meantime however and I recommend treating with higher dose of ibuprofen combined with Tylenol. I have given you a few tablets of oxycodone to use only if absolutely necessary if pain not relieved by ibuprofen and Tylenol. Return if you develop a fever, vomiting or increased pain or new concerns. I am prescribing a short course of narcotic pain medication for you. These are potentially dangerous and addictive medications that should be used carefully. These medications may constipate you. Take an vauw-rqs-xdgpnmv stool softener (docusate) twice daily with plenty of water while taking these medications. If you go 24 hours without a bowel movement, take uwrp-qyy-fnaubvy miralax, per package instructions. Do not drink or drive while taking these medications. If you received narcotic or sedating medications while in the emergency department, do not drive for 24 hours. Store this medication in a safe, secure place and out of reach of children. It is a violation of federal law to give or sell this medication to another person or to use in a manner other than prescribed. The ED will not refill narcotic prescriptions, including prescriptions lost or stolen. To dispose of unwanted medications: 1. [facility]'s Office provides a drop box for medication in pill form only (no liquids) 8:00 am to 4:30 p.m. Friday-Friday in the lobby of the [facility], [address] Empty pills into ziplock bag before disposal. Call [phone] for information. 2.[employer] is a free service available to all [facility] residents. Go to https://[employer].org/locations/[place]/ Note that many narcotic pain relievers also contain Tylenol/acetaminophen. Please ensure that your total dose of acetaminophen from all sources does not exceed 3 g (3000 mg) per day. Forms: PCP List Discharge Date/Time: 01/28/24 20:14
[2024-01-28 17:00] LABS: ALBUMIN 4.2 g/dL (3.2-5.5); ALBUMIN/GLOBULIN RATIO 1.3 (1.0-2.2); ALKALINE PHOSPHATASE 99 IU/L (42-121); ALT ALANINE AMINOTRANSFERASE 24 IU/L (10-60); AST ASPARTATE AMINOTRANSFERASE 27 IU/L (10-42); BILIRUBIN,TOTAL 0.6 mg/dL (0.2-1.0); BUN - BLOOD UREA NITROGEN 14 mg/dL (6-20); CALCIUM 9.3 mg/dL (8.5-10.3); CARBON DIOXIDE - CO2 26 mmol/L (21-32); CHLORIDE 106 mmol/L (101-111); CREATININE 0.7 mg/dL (0.6-1.3); GFR - MDRD 96 (>89); GLUCOSE 69 mg/dL (74-104); LIPASE 39 U/L (11-82); POTASSIUM 3.6 mmol/L (3.5-4.5); SODIUM 137 mmol/L (135-145); TOTAL PROTEIN 7.4 g/dL (6.4-8.9)
[2024-01-28] MEDS: KETOROLAC 30 MG/ML VIAL IM STA (17:48)
[2024-01-28] MEDS: HYDROmorphone 1 MG/ML CARPUJECT IM STA ×2 (19:01→20:11)
[2024-01-28 19:23] VITALS: BP 99/61
[2024-01-28] MEDS: oxyCODONE/ACET 5/325 Prepack 4 PO STA (19:57)
--- NOTE | 2024-01-28 21:06 | Ultrasound Report ---
PROCEDURE: Pelvic w/Doppler Complete INDICATIONS: ongoing right sided pain TECHNIQUE: Real-time transabdominal scanning was performed of the pelvic organs, with image documentation. COMPARISON: 12/27/2023 FINDINGS: Uterus: Uterus is anteverted and normal in size at 9.8 x 3.3 x 5.8 cm. The myometrium is homogeneou s. The endometrium measures 4 mm in combined thickness. Ovaries: The right ovary measures 6.5 x 4.4 x 5.1 cm, with a calculated ovarian volume of 75 cc. Th e left ovary measures 3.3 x 2.7 x 1.7 cm, with a calculated ovarian volume of 7.7 cc. The ovaries campa ve a normal sonographic appearance. Less than 12 follicles can be seen in each ovary. No adnexal ma sses are seen. There is a 1.7 x 1.9 x 1.9 cm left ovarian cyst. Multiple cysts noted on the right. La rgest measures 3.8 x 2.2 x 4.2 cm. Second largest measures 2.9 x 1.8 x 3.2 cm. Third largest cyst rodolfo sures 2.5 x 2.0 x 2.8 cm. No sonographic evidence for torsion. Normal waveforms seen bilaterally. Other: No free pelvic fluid. IMPRESSION: No sonographic evidence for ovarian torsion. Bilateral ovarian cysts, larger on the right. Reviewed by: Flavio Meyers MD on 01/28/2024 9:05 PM PDT Approved by: Flavio Meyers MD on 01/28/2024 9:05 PM PDT Station ID: [id number]
== END 2024-01-28 20:14 | disposition home or self-care (01) ==
LOC: ED 15:58
DX: N83.201 Unspecified ovarian cyst, right side (principal); R10.31 Right lower quadrant pain
CPT/HCPCS: 36415; 76856; 80053; 81003; 81025; 83690; 84702; 85025; 93975; 96372; 99284; J1170; 81001; 87086

== ENCOUNTER 2024-02-25 11:15 | Outpatient (CLI) | payer MEDICAID | END 2024-02-25 11:16 | disposition home or self-care (01) | LOC: LAB.N 11:15 | PROVIDERS: ATTEND Obstetrics & Gynecology | DX: O01.9 Hydatidiform mole, unspecified (principal) | CPT/HCPCS: 36415; 84702 ==

== ENCOUNTER 2024-04-08 10:14 | Outpatient (CLI) | payer MEDICAID | END 2024-04-08 10:15 | disposition home or self-care (01) | LOC: LAB.N 10:14 | PROVIDERS: ATTEND Obstetrics & Gynecology | DX: O01.9 Hydatidiform mole, unspecified (principal) | CPT/HCPCS: 36415; 84702 ==

== ENCOUNTER 2024-04-21 08:00 | Outpatient (CLI) | payer MEDICAID, OTHER ==
[2024-04-22 00:40] LABS: CHLAMYDIA TRACHOMATIS DNA NEGATIVE (NEGATIVE); NEISSERIA GONORRHOEAE DNA NEGATIVE (NEGATIVE); TRICHOMONAS VAGINALIS DNA NEGATIVE (NEGATIVE)
== END 2024-04-21 23:59 | disposition home or self-care (01) ==
LOC: LAB.WC 08:00
PROVIDERS: ATTEND Obstetrics & Gynecology
DX: Z11.3 Encounter for screening for infections with a predominantly sexual mode of transmission (principal)
CPT/HCPCS: 87491; 87591; 87661

== ENCOUNTER 2024-05-10 12:31 | Outpatient (CLI) | payer OTHER ==
[2024-05-10 18:32] LABS: THYROID STIMULATING HORMONE 1.27 uIU/mL (0.34-5.60)
[2024-05-10 18:36] LABS: PROLACTIN 18.73 ng/mL
[2024-05-10 21:26] LABS: ESTIMATED AVERAGE GLUCOSE 100 mg/dL (70-100); HEMOGLOBIN A1c% 5.1 % (4.27-6.07)
== END 2024-05-10 12:32 | disposition home or self-care (01) ==
LOC: LAB.N 12:31
PROVIDERS: ATTEND Obstetrics & Gynecology
DX: N91.2 Amenorrhea, unspecified (principal); Z11.3 Encounter for screening for infections with a predominantly sexual mode of transmission
CPT/HCPCS: 36415; 83036; 84146; 84443; 84702

== ENCOUNTER 2024-05-22 13:23 | Outpatient (CLI) | payer OTHER ==
--- NOTE | 2024-05-22 23:43 | Ultrasound Report ---
PROCEDURE: Pelvic w/Transvaginal INDICATIONS: OVARIAN CYST TECHNIQUE: Real-time scanning was performed of the pelvic organs, with image documentation. Additional endovagi nal scanning was necessary due to incomplete visualization of the adnexal and endometrial structures by transabdominal scanning. COMPARISON: 03/05/2024. FINDINGS: Uterus: Uterus is anteverted and normal in size at 9.5 x 3.5 x 3.5 cm. The myometrium is heterogene ous. The endometrium measures 9 mm in combined thickness. Ovaries: The right ovary measures 2.4 x 2.2 x 2.3 cm, with a calculated ovarian volume of 6.5 cc. T he left ovary measures 3.0 x 1.6 x 1.7 cm, with a calculated ovarian volume of 4.3 cc. The ovaries h ave a normal sonographic appearance. Less than 12 follicles can be seen in each ovary. No adnexal m asses are seen. No cystic lesions measuring greater than 3 cm. Previously described 5.0 cm right ovar katrin cyst has resolved. Other: No pathologic free abdominal or pelvic fluid. IMPRESSION: Interval resolution of previously described 5.0 cm right ovarian cyst. Pelvic ultrasound without acute sonographic abnormalities. Reviewed by: Flavio Meyers MD on 05/22/2024 11:42 PM PDT Approved by: Flavio Meyers MD on 05/22/2024 11:42 PM PDT Station ID: [id number]
== END 2024-05-22 13:24 | disposition home or self-care (01) ==
LOC: DI 13:23
PROVIDERS: ATTEND Obstetrics & Gynecology
DX: N83.201 Unspecified ovarian cyst, right side (principal)